=== PATIENT | female | born 1935 | race Caucasian/White ===

== ENCOUNTER 2021-07-30 15:42 | Inpatient (IN) ==
--- NOTE | 2021-07-30 16:00 | Emergency Department Note ---
Impression & Plan Hypothermia, Leg swelling, Cellulitis of leg, right, Pain in right shoulder, Bradycardia ED Provider Note Provider: Joselito Mars MD DATE OF SERVICE: 07/30/2021 CHIEF COMPLAINT: Cold, leg wounds HISTORY OF PRESENT ILLNESS: Patient is a 86-year-old female presenting via ambulance from her home today after EMS was summoned by [facility] workers. Evidently some [facility] [employer] workers went to check on her and were concerned about her condition and thus called EMS. EMS reports that there was somewhat of a deplorable condition at home and the patient had obvious wounds on her legs as well as intertriginous irritations. She was noted to be bradycardic for EMS and was given a very small amount of IV fluid prior to arrival. Upon arrival here the patient states that she does not feel cold and does not have any pain. She denies any nausea, palpitations, shortness of breath, or numbness or weakness. She answers majority of the questions no but does not have a prolonged discussion with me. Patient states that she does not know that her legs are in a bad condition. EMS report that the patient's home meds include lisinopril and Protonix but is unclear when she was last at medical care. REVIEW OF SYSTEMS: A total of 10 review of systems was obtained and negative except as stated above in the HPI. PAST MEDICAL HISTORY: As noted above MEDICATIONS: EMS reports lisinopril Protonix SOCIAL HISTORY: Reported lives at home with brother PHYSICAL EXAM: GENERAL: alert and oriented to person in no acute distress on stretcher somewhat slow to respond with kyphosis Head: normocephalic and atraumatic EYES: No injection, discharge or icterus. PERRL NECK: Trachea midline. Supple. ENT: Mucous membranes pink and moist. LUNGS: Airway patent. No retractions. Breath sounds clear with good air entry bilaterally. HEART: Regular rate and rhythm. No chest wall tenderness ABDOMEN: Soft and non-tender, without guarding or rebound. BACK: No midline tenderness with grade 1 sacral decub approximately 2 cm noted SKIN: Acyanotic but cool. Patient with mild erythematous rash under the bilateral breasts in the inguinal region. EXTREMITIES: Patient with about 2+ bilateral lower extreme edema with some chronic venous stasis and mild bilateral erythema. There is some white purulent discharge overlying the skin area of the right lower leg just proximal to the ankle. NEUROLOGICAL: No focal deficits moving all extremities. No aphasia. No facial droop or slurred speech. EK bpm appears to be a sinus bradycardia ST segment elevation or depression noted. QTc 445 CONTINUOUS CARDIAC MONITORING: was ordered and showed a heart rate of 30s-40s bpm in sinus bradycardia Patient's laboratory studies and imaging reviewed. Differential includes Infection, dehydration, metabolic abnormality, hypo/hyperglycemia, electrolyte disturbance, anemia, hypoxia, cardiac sources, intracerebral event, toxicologic, neurologic, as well as other pathologies. IMPRESSION/MEDICAL DECISION MAKING: Patient presents appears somewhat fatigued and an unkept state. There is evidence of intertriginous irritations in of the breast in the groin region. There is 2-3+ lower extremity edema with the lower leg just above the ankle some purulence and white material. No active bleeding noted or obvious traumatic injury but significant skin breakdown noted concern for possible 6 infection here. Cultures including skin culture was ordered. Patient hypothermic and bradycardic but blood pressure stable and she does answer questions. Nikole hugger thermal blanket applied for warming. Labs were sent. Leukopenia but no significant anemia. Some thrombocytopenia noted 116. No lactate elevation. Negative Covid test. Given she is a little bit fatigued and slow to respond to CT the head to be completed. Some slight tenderness of the right shoulder and x-rays obtained here. Question dislocation versus subluxation. Some tenderness but not in a medical place for any kind of reduction attempt. Likely more chronic. Resident discussed with Dr. Acuna and will place in sling at this time. Procalcitonin not severely elevated given the evaluation of the legs given a dose of Zosyn empirically. Again cultures were obtained. Will admit for further care. No emergency contact listed in EMR here at home phone number continues to ring. Patient's temperature does begin to slowly increase and given additional small amount of of IV fluid warmed. DIAGNOSIS: Hypothermia, leg cellulitis/wounds, bradycardia, right shoulder pain DISPOSITION: Hospitalist will evaluate Critical Care I have personally spent 35 minutes of critical care time in the direct managem ent of this patient. This includes bedside care, interpretation of diagnostic studies, and testing, discussion with consultants, patient, and other required patient management activities. These 35 minutes is in excess of all separately billable procedures. Past Med/Surg History Medical History (Updated 07/30/21 @ 20:01 by Zaida Murillo PA-C) GERD (gastroesophageal reflux disease) HLD (hyperlipidemia) HTN (hypertension) Surgical History (Updated 07/30/21 @ 19:51 by Zaida Murillo PA-C) No history of previous surgery Family History (Updated 07/30/21 @ 19:52 by Zaida Murillo PA-C) Sister Breast cancer Mother Heart disease Father Heart disease Social History (Updated 07/30/21 @ 19:52 by Zaida Murillo PA-C) Smoking Status: Unknown if ever smoked Hx Alcohol Use: No Hx Substance Use: No Allergies Allergies Allergy/AdvReac Type Severity Reaction Status Date / Time No Known Allergies Allergy Verified 07/30/21 17:54 Home Meds Home Medications Medication Instructions Recorded Confirmed Unobtainable 07/30/21 07/30/21 Results & Data (ED) Vital Signs Vital Signs - 24 hr 07/30/21 15:47 07/30/21 15:48 07/30/21 15:57 Temperature 29.6 C L Temperature Source Rectal Pulse Rate 39 L Pulse Rate [Apical] Pulse Rhythm [Apical] Respiratory Rate 14 Respiratory Effort / Characteristics Non-Labored Respiratory Depth Normal Respiratory Pattern Blood Pressure 142/65 H Blood Pressure [Left Arm] Blood Pressure Mean 90 Blood Pressure Mean [Left Arm] Blood Pressure Position [Left Arm] Pulse Oximetry 97 Oxygen Delivery Method Room Air Room Air Sepsis Recent Fever Within 48 Hours No Sepsis New/Unexplained Change in Mental Status Yes Sepsis Action Taken by Nursing No Action Required 07/30/21 16:36 07/30/21 16:48 07/30/21 17:00 Temperature Temperature Source Pulse Rate Pulse Rate [Apical] 33 L 38 L Pulse Rhythm [Apical] Respiratory Rate 13 15 Respiratory Effort / Characteristics Non-Labored Spontaneous Non-Labored Spontaneous Respiratory Depth Normal Normal Respiratory Pattern Blood Pressure Blood Pressure [Left Arm] 112/68 139/52 L Blood Pressure Mean Blood Pressure Mean [Left Arm] 82 81 Blood Pressure Position [Left Arm] Pulse Oximetry 96 97 97 Oxygen Delivery Method Room Air Room Air Room Air Sepsis Recent Fever Within 48 Hours Sepsis New/Unexplained Change in Mental Status Sepsis Action Taken by Nursing 07/30/21 17:45 07/30/21 18:00 07/30/21 18:30 Temperature 29.3 C L Temperature Source Rectal Pulse Rate Pulse Rate [Apical] 33 L 38 L 36 L Pulse Rhythm [Apical] Respiratory Rate 16 13 14 Respiratory Effort / Characteristics Non-Labored Non-Labored Spontaneous Non-Labored Respiratory Depth Normal Normal Normal Respiratory Pattern Blood Pressure Blood Pressure [Left Arm] 127/59 L 95/44 L 98/39 L Blood Pressure Mean Blood Pressure Mean [Left Arm] 81 61 58 Blood Pressure Position [Left Arm] Pulse Oximetry 97 97 96 Oxygen Delivery Method Room Air Room Air Room Air Sepsis Recent Fever Within 48 Hours Sepsis New/Unexplained Change in Mental Status Sepsis Action Taken by Nursing 07/30/21 18:37 07/30/21 19:02 07/30/21 19:14 Temperature Temperature Source Pulse Rate Pulse Rate [Apical] 41 L Pulse Rhythm [Apical] Respiratory Rate 20 15 Respiratory Effort / Characteristics Non-Labored Non-Labored Spontaneous Respiratory Depth Shallow Respiratory Pattern Regular Blood Pressure Blood Pressure [Left Arm] 98/50 L 90/48 L Blood Pressure Mean Blood Pressure Mean [Left Arm] 66 62 Blood Pressure Position [Left Arm] Lying Pulse Oximetry 96 96 Oxygen Delivery Method Room Air Room Air Sepsis Recent Fever Within 48 Hours Sepsis New/Unexplained Change in Mental Status Sepsis Action Taken by Nursing 07/30/21 19:15 07/30/21 19:30 Temperature 30.4 C L Temperature Source Rectal Pulse Rate Pulse Rate [Apical] 44 L 41 L Pulse Rhythm [Apical] Regular Respiratory Rate 16 18 Respiratory Effort / Characteristics Non-Labored Spontaneous Non-Labored Spontaneous Respiratory Depth Shallow Respiratory Pattern Regular Blood Pressure Blood Pressure [Left Arm] 96/40 L 99/45 L Blood Pressure Mean Blood Pressure Mean [Left Arm] 58 63 Blood Pressure Position [Left Arm] Lying Lying Pulse Oximetry 95 95 Oxygen Delivery Method Room Air Room Air Sepsis Recent Fever Within 48 Hours Sepsis New/Unexplained Change in Mental Status Sepsis Action Taken by Nursing Laboratory Data Result diagrams: 07/30/21 16:08 07/30/21 17:55 Lab Results 07/30/21 07/30/21 07/30/21 Range/Units 16:00 16:08 16:08 WBC 4.75 L (4.8-10.8) K/uL RBC 4.90 (4.2-5.4) M/uL Hgb 14.4 (12.0-16.0) g/dL Hct 44.2 (37-47) % MCV 90.2 (80-100) fL MCH 29.4 (25-34) pg MCHC 32.6 (32-36) g/dL RDW Std Deviation 51.0 H (36.4-46.3) fL RDW Coeff of Paul 15.6 H (11.5-14.5) % Plt Count 116 L (130-400) K/uL MPV 11.4 H (7.4-10.4) fL Immature Gran % (Auto) 0.0 % Neut % (Auto) 85.9 % Lymph % (Auto) 8.2 % Story % (Auto) 5.7 % Eos % (Auto) 0.2 % Baso % (Auto) 0.0 % Neut # (Auto) 4.08 (1.4-6.5) K/uL Lymph # (Auto) 0.39 L (1.2-3.4) K/uL Story # (Auto) 0.27 (0.11-0.59) K/uL Eos # (Auto) 0.01 (0-0.5) K/uL Baso # (Auto) 0.00 (0-0.2) K/uL Immature Gran # (Auto) 0.00 (0.00-0.02) K/uL Echinocytes 1+ PT 11.1 (9.0-12.0) Seconds INR 1.0 (0.9-1.1) APTT 42.8 H (21.0-31.0) Seconds PTT Ratio 1.6 Sodium (136-145) mmol/L Potassium (3.5-5.1) mmol/L Chloride (98-107) mmol/L Carbon Dioxide (21-32) mmol/L Anion Gap (3-11) BUN (6-23) mg/dl Creatinine (0.6-1.2) mg/dl Est Cr Clr Drug Dosing Est GFR ( Amer) ml/min Est GFR (Non-Af Amer) ml/min BUN/Creatinine Ratio (10-20) Glucose (70-99(Fasting)) mg/dl Lactate (0.4-2.0) mmol/L Calcium (8.5-10.1) mg/dl Magnesium (1.7-2.4) mg/dl Total Bilirubin (0.2-1.0) mg/dl AST (13-39) U/L ALT (7-52) U/L Alkaline Phosphatase (34-104) U/L Total Creatine Kinase (26-192) U/L Troponin I (0-0.04) ng/ml Total Protein (6.0-8.3) gm/dl Albumin (3.4-5.0) gm/dl Globulin (2.5-4.0) gm/dl Albumin/Globulin Ratio (0.9-2) Lipase (11-82) U/L Procalcitonin (0-0.5) ng/ml TSH (0.300-4.500) uIu/ml SARS-CoV-2, RNA, NAAT NEGATIVE (NEGATIVE) 07/30/21 07/30/21 07/30/21 Range/Units 16:08 16:08 16:08 WBC (4.8-10.8) K/uL RBC (4.2-5.4) M/uL Hgb (12.0-16.0) g/dL Hct (37-47) % MCV (80-100) fL MCH (25-34) pg MCHC (32-36) g/dL RDW Std Deviation (36.4-46.3) fL RDW Coeff of Paul (11.5-14.5) % Plt Count (130-400) K/uL MPV (7.4-10.4) fL Immature Gran % (Auto) % Neut % (Auto) % Lymph % (Auto) % Story % (Auto) % Eos % (Auto) % Baso % (Auto) % Neut # (Auto) (1.4-6.5) K/uL Lymph # (Auto) (1.2-3.4) K/uL Story # (Auto) (0.11-0.59) K/uL Eos # (Auto) (0-0.5) K/uL Baso # (Auto) (0-0.2) K/uL Immature Gran # (Auto) (0.00-0.02) K/uL Echinocytes PT (9.0-12.0) Seconds INR (0.9-1.1) APTT (21.0-31.0) Seconds PTT Ratio Sodium 144 (136-145) mmol/L Potassium (3.5-5.1) mmol/L Chloride 110 H (98-107) mmol/L Carbon Dioxide 29 (21-32) mmol/L Anion Gap 5 (3-11) BUN 47 H (6-23) mg/dl Creatinine 0.49 L (0.6-1.2) mg/dl Est Cr Clr Drug Dosing Not Reportable Est GFR ( Amer) 103.0 ml/min Est GFR (Non-Af Amer) 88.8 ml/min BUN/Creatinine Ratio 95.9 H (10-20) Glucose 95 (70-99(Fasting)) mg/dl Lactate 0.6 (0.4-2.0) mmol/L Calcium 10.3 H (8.5-10.1) mg/dl Magnesium 2.3 (1.7-2.4) mg/dl Total Bilirubin 0.4 (0.2-1.0) mg/dl AST (13-39) U/L ALT 37 (7-52) U/L Alkaline Phosphatase 139 H (34-104) U/L Total Creatine Kinase 41 (26-192) U/L Troponin I < 0.03 (0-0.04) ng/ml Total Protein 7.1 (6.0-8.3) gm/dl Albumin 3.7 (3.4-5.0) gm/dl Globulin 3.4 (2.5-4.0) gm/dl Albumin/Globulin Ratio 1.1 (0.9-2) Lipase (11-82) U/L Procalcitonin (0-0.5) ng/ml TSH 2.537 (0.300-4.500) uIu/ml SARS-CoV-2, RNA, NAAT (NEGATIVE) 07/30/21 07/30/21 07/30/21 Range/Units 16:32 17:55 17:55 WBC (4.8-10.8) K/uL RBC (4.2-5.4) M/uL Hgb (12.0-16.0) g/dL Hct (37-47) % MCV (80-100) fL MCH (25-34) pg MCHC (32-36) g/dL RDW Std Deviation (36.4-46.3) fL RDW Coeff of Paul (11.5-14.5) % Plt Count (130-400) K/uL MPV (7.4-10.4) fL Immature Gran % (Auto) % Neut % (Auto) % Lymph % (Auto) % Story % (Auto) % Eos % (Auto) % Baso % (Auto) % Neut # (Auto) (1.4-6.5) K/uL Lymph # (Auto) (1.2-3.4) K/uL Story # (Auto) (0.11-0.59) K/uL Eos # (Auto) (0-0.5) K/uL Baso # (Auto) (0-0.2) K/uL Immature Gran # (Auto) (0.00-0.02) K/uL Echinocytes PT (9.0-12.0) Seconds INR (0.9-1.1) APTT (21.0-31.0) Seconds PTT Ratio Sodium (136-145) mmol/L Potassium 4.3 (3.5-5.1) mmol/L Chloride (98-107) mmol/L Carbon Dioxide (21-32) mmol/L Anion Gap (3-11) BUN (6-23) mg/dl Creatinine (0.6-1.2) mg/dl Est Cr Clr Drug Dosing Est GFR ( Amer) ml/min Est GFR (Non-Af Amer) ml/min BUN/Creatinine Ratio (10-20) Glucose (70-99(Fasting)) mg/dl Lactate (0.4-2.0) mmol/L Calcium (8.5-10.1) mg/dl Magnesium (1.7-2.4) mg/dl Total Bilirubin (0.2-1.0) mg/dl AST 26 (13-39) U/L ALT (7-52) U/L Alkaline Phosphatase (34-104) U/L Total Creatine Kinase (26-192) U/L Troponin I (0-0.04) ng/ml Total Protein (6.0-8.3) gm/dl Albumin (3.4-5.0) gm/dl Globulin (2.5-4.0) gm/dl Albumin/Globulin Ratio (0.9-2) Lipase 132 H (11-82) U/L Procalcitonin < 0.05 (0-0.5) ng/ml TSH (0.300-4.500) uIu/ml SARS-CoV-2, RNA, NAAT (NEGATIVE) Administered Medications Discontinued Medications Piperacillin Sod/Tazobactam Sod (Zosyn) 4.5 gm in 120 mls @ 240 mls/hr IV NOW ONE Stop: 07/30/21 17:54 Last Infusion: 07/30/21 18:15 Dose: 0 mls/hr Documented by: [id number] Admin: 07/30/21 17:34 Dose: 240 mls/hr Documented by: [id number] Sodium Chloride (Nss) 500 mls @ 999 mls/hr IV .Q31M ONE Stop: 07/30/21 17:59 Last Infusion: 07/30/21 19:20 Dose: 0 mls/hr Documented by: [id number] Admin: 07/30/21 17:59 Dose: 999 mls/hr Documented by: [id number] Sodium Chloride (Nss) 500 mls @ 999 mls/hr IV .Q31M ONE Stop: 07/30/21 19:42 Last Admin: 07/30/21 19:29 Dose: 999 mls/hr Documented by: [id number] Nystatin (Nystatin Powder 15gm Btl) 1 appln EXT ONCE ONE Stop: 07/30/21 16:22 Last Admin: 07/30/21 17:02 Dose: 1 appln Documented by: [id number] Imaging Data Radiologist's Impression: Chest X-Ray 07/30/21 15:48 XR chest 1V portable CLINICAL HISTORY: SEPSIS. COMPARISON STUDY: 05/08/2015 TECHNIQUE: 1 view of the chest FINDINGS: Single frontal view of the chest demonstrates the heart size to again be e nlarged. The patient is in a kyphotic position in the lung apices cannot be well seen. The remainder of the lungs are clear of alveolar opacities. There is no evidence for pleural effusion. There is no evidence for vascular congestion. There is no acute osseous pathology. IMPRESSION: 1. No acute cardiopulmonary disease. 2. Limited examination due to kyphotic positioning. ACT 112: Negative or not required by law. Electronically signed by: Bo Joyce M.D. 07/30/2021 4:[address] 07/30/21 16:07 CT head/brain wo con CLINICAL HISTORY: AMS Technique: Contiguous axial CT images of the head were acquired from the base of the skull to the vertex without intravenous contrast administration. Images were viewed in brain, subdural and bone windows. Automated dose lowering techniques and/or adjustment according to patient size were utilized for this exam. Comparison: None available at the time of this dictation. Findings: Exam is limited by patient motion. Areas of decreased attenuation are present in the periventricular and subcortical white matter bilaterally consistent with small vessel ischemic disease. Generalized cerebral atrophy with commensurate enlargement of the ventricles, sulci, and cisterns is also present. There is no acute intracranial hemorrhage or evidence of acute territorial infarction. No shift of the midline structures, mass effect, or extra-axial abnormalities are shown. Atherosclerotic calcifications are present in the intracranial segments of the internal carotid arteries. Imaged portions of the paranasal sinuses and mastoid air cells are clear. The orbits appear normal. There are no acute fractures of the calvaria or scalp swelling. Impression: No acute intracranial hemorrhage, no evidence of acute territorial infarction or other acute intracranial disease process. ACT 112: Negative or not required by law. Electronically signed by: Francois Elias M.D. 07/30/2021 4:50 PM Shoulder X-Ray 07/30/21 16:34 XR shoulder RT min 2V routine CLINICAL HISTORY: shoulder tenderness,. COMPARISON STUDY: 02/01/2021 TECHNIQUE: 3 right shoulder views FINDINGS: Bones: There is an old, healed humeral neck fracture present. There is anterior subluxation/dislocation of the humeral head in relation to the glenoid. There is no lytic or blastic lesion. Joints: The AC joint is intact. Soft tissues: There is no focal soft tissue abnormality. There is no radiopaque foreign body. IMPRESSION: 1. Old, healed humeral neck fracture with anterior subluxation/dislocation of t he humeral head in relation to the glenoid. ACT 112: Negative or not required by law. Electronically signed by: Bo Joyce M.D. 07/30/2021 5:17 PM Discharge Plan Visit Data Chief Complaint: Illness Stated Complaint: AMS, UNABLE TO AMBULATE ED Provider: Joselito Mars ED Midlevel Provider: Sweta Evans Discharge Problem: Hypothermia, Leg swelling, Cellulitis of leg, right, Pain in right shoulder, Bradycardia Patient Disposition: Being Evaluated by Hospitalist Forms Stand Alone Forms: Dtime Prescriptions Prescriptions: No Action Unobtainable RF: 0 Referrals Referrals: Aleja Vines MD [Primary Care Provider] - Discharge Problem: Hypothermia Qualifiers: Encounter type: initial encounter Qualified Code(s): T68.XXXA - Hypothermia, initial encounter Pain in right shoulder Qualifiers: Chronicity: unspecified Qualified Code(s): M25.511 - Pain in right shoulder
--- NOTE | 2021-07-30 16:17 | Emergency Department Note ---
ED Visit Note Patient was seen by myself and discussed with Dr. Mars who evaluated her separately. Please see his note for assessment and plan. Resident Activity Tracking Resident Involvement: Resident Care Provided Care Provided: Adult ED
[2021-07-30 16:21] LABS: Eosinophils # (auto) 0.01 K/uL (0-0.5); Eosinophils % (auto) 0.2 %; Hematocrit (blood only) 44.2 % (37-47); Hemoglobin 14.4 g/dL (12.0-16.0); Lymphocytes # (auto) 0.39 K/uL (1.2-3.4); Lymphocytes % (auto) 8.2 %; Mean Corpuscular Hemoglobin 29.4 pg (25-34); Mean Corpuscular Hgb Conc 32.6 g/dL (32-36); Mean Corpuscular Volume 90.2 fL (80-100); Mean Platelet Volume 11.4 fL (7.4-10.4); Monocytes # (auto) 0.27 K/uL (0.11-0.59); Monocytes % (auto) 5.7 %; Neutrophils # (auto) 4.08 K/uL (1.4-6.5); Neutrophils % (auto) 85.9 %; Platelet Count 116 K/uL (130-400); RDW Coefficient of Variation 15.6 % (11.5-14.5); White Blood Count 4.75 K/uL (4.8-10.8)
[2021-07-30] MEDS ORDERED: NYSTATIN POWDER 15GM BTL EXT ONE (16:21)
--- NOTE | 2021-07-30 16:28 | XRay Report ---
XR chest 1V portable CLINICAL HISTORY: SEPSIS. COMPARISON STUDY: 05/08/2015 TECHNIQUE: 1 view of the chest FINDINGS: Single frontal view of the chest demonstrates the heart size to again be enlarged. The patient is in a kyphotic position in the lung apices cannot be well seen. The remainder of the lungs are clear of a lveolar opacities. There is no evidence for pleural effusion. There is no evidence for vascular conge stion. There is no acute osseous pathology. IMPRESSION: 1. No acute cardiopulmonary disease. 2. Limited examination due to kyphotic positioning. ACT 112: Negative or not required by law. Electronically signed by: Bo Joyce M.D. 07/30/2021 4:26 PM
[2021-07-30 16:30] LABS: Partial Thromboplastin Ratio 1.6; Partial Thromboplastin Time 42.8 Seconds (21.0-31.0); Prothrombin Time 11.1 Seconds (9.0-12.0)
[2021-07-30 16:48] LABS: Alanine Aminotransferase 37 U/L (7-52); Albumin Globulin Ratio 1.1 (0.9-2); Albumin Level 3.7 gm/dl (3.4-5.0); Alkaline Phosphatase 139 U/L (34-104); Anion Gap 5 (3-11); BUN Creatinine Ratio 95.9 (10-20); Bilirubin,Total 0.4 mg/dl (0.2-1.0); Blood Urea Nitrogen 47 mg/dl (6-23); Calcium 10.3 mg/dl (8.5-10.1); Carbon Dioxide 29 mmol/L (21-32); Chloride 110 mmol/L (98-107); Creatine Kinase 41 U/L (26-192); Est GFR (Non-African American) 88.8 ml/min; Globulin 3.4 gm/dl (2.5-4.0); Glucose 95 mg/dl (70-99(Fasting)); Magnesium 2.3 mg/dl (1.7-2.4); Sodium 144 mmol/L (136-145); Total Protein 7.1 gm/dl (6.0-8.3); Troponin I < 0.03 ng/ml (0-0.04)
--- NOTE | 2021-07-30 16:52 | CT Scan Report ---
CT head/brain wo con CLINICAL HISTORY: AMS Technique: Contiguous axial CT images of the head were acquired from the base of the skull to the mildred rosaline without intravenous contrast administration. Images were viewed in brain, subdural and [facility]. Automated dose lowering techniques and/or adjustment according to patient size were utilized for this exam. Comparison: None available at the time of this dictation. Findings: Exam is limited by patient motion. Areas of decreased attenuation are present in the periventricular and subcortical white matter bilaterally consistent with small vessel ischemic disease. Generalized c erebral atrophy with commensurate enlargement of the ventricles, sulci, and cisterns is also present. There is no acute intracranial hemorrhage or evidence of acute territorial infarction. No shift of t he midline structures, mass effect, or extra-axial abnormalities are shown. Atherosclerotic calcific ations are present in the intracranial segments of the internal carotid arteries. Imaged portions of the paranasal sinuses and mastoid air cells are clear. The orbits appear normal. There are no acute fractures of the calvaria or scalp swelling. Impression: No acute intracranial hemorrhage, no evidence of acute territorial infarction or other acute intracra nial disease process. ACT 112: Negative or not required by law. Electronically signed by: Francois Elias M.D. 07/30/2021 4:50 PM
[2021-07-30 16:53] LABS: Echinocytes 1+
--- NOTE | 2021-07-30 17:18 | XRay Report ---
XR shoulder RT min 2V routine CLINICAL HISTORY: shoulder tenderness,. COMPARISON STUDY: 02/01/2021 TECHNIQUE: 3 right shoulder views FINDINGS: Bones: There is an old, healed humeral neck fracture present. There is anterior subluxation/dislocati on of the humeral head in relation to the glenoid. There is no lytic or blastic lesion. Joints: The AC joint is intact. Soft tissues: There is no focal soft tissue abnormality. There is no radiopaque foreign body. IMPRESSION: 1. Old, healed humeral neck fracture with anterior subluxation/dislocation of the humeral head in rel ation to the glenoid. ACT 112: Negative or not required by law. Electronically signed by: Bo Joyce M.D. 07/30/2021 5:17 PM
[2021-07-30] MEDS ORDERED: PIPERACILL/TAZOBAC CONSULT ACTIVE PRN (17:25)
[2021-07-30] MEDS ORDERED: PIPERACILLIN/TAZOBACTAM 4.5 GM/120 ML BAG IV ONE (17:25)
[2021-07-30] MEDS ORDERED: SODIUM CHLORIDE 0.9% 500 ML IV ONE ×2 (17:29→19:12)
[2021-07-30 18:24] LABS: Potassium 4.3 mmol/L (3.5-5.1)
--- NOTE | 2021-07-30 18:42 | History & Physical Report ---
Date of Service July 30, 2021 Assessment & Plan (1) Hypothermia: (2) Bradycardia: (3) AMS (altered mental status): Plan: Patient is 86-year-old female with PMH HTN, HLD, GERD presented to ER by EMS for leg wounds and hypothermia. Area agency on aging found patient in house today disheveled, covered in feces and EMS transported to hospital. Reported house felt cool. In ER found to be hypothermic T: 29.6C rectally, P: 39, R: 14, BP: 142/65, 97% on RA. A freeman hugger was applied and patient given 500ml warmed NSS. Temperature up to 30.4C rectally, BP: 99/45, P: 41 CT HEAD: no acute changes CXR: no acute changes ? hypothermic secondary to cold house. Bradycardia likely secondary to moderate hypothermia. AMS likely secondary to hypothermia, unsure of pt's baseline mental status. No known family to contact currently Tele to monitor Pacer pads at bedside Continue heated blanket TSH: 2.5, normal CPK, troponin Lyme titer, lipase pending Blood cultures pending, UA, Urine culture pending Neuro checks echo IVF NPO for now until improved mental status/condition CBC, BMP in am (4) Leg swelling: Plan: Leg Wounds Appears to have chronic BLE edema and unkept skin In ER given Zosyn Will continue Zosyn, add doxycycline Wound culture, blood cultures pending Venous doppler BLE to r/o DVT Wound nurse consult (5) HTN (hypertension): Plan: Reported h/o HTN from outpatient records. Previously prescribed lisinopril 5mg daily. Unknown last dose Currently hypotensive Monitor (6) HLD (hyperlipidemia): Plan: Reported h/o HLD from outpatient records. Previously prescribed atorvastatin 10mg daily. Unknown last dose (7) GERD (gastroesophageal reflux disease): Plan: Prior h/o GERD. Previously prescribed Protonix 40mg daily. Unknown last dose DVT Prophylaxis Heparin SQ Full Code, unable to fully discuss with patient secondary to mental status. Outpatient records reviewed an no advanced directives found in chart Follows with Dr Aleja Vines for routine care, however has not been seen since 2019. Pt was seen and care coordinated with Dr Singleton. See addendum History of Present Illness Chief Complaint: Leg wounds Primary Care Provider: Aleja Vines MD Patient is 86-year-old female with PMH HTN, HLD, GERD presented to ER by EMS for leg wounds and hypothermia. History obtained from outpatient records, ER staff, limited history obtained from patient secondary to current mental status. It is reported area agency on aging went to patient's house today and found her in poor living conditions and found patient's condition to be poor and EMS was called. It is reported EMS stated house was full of clutter with multiple things stuck to the ceiling. One EMS provider reported house temperature appeared cool. Reported patient was found sitting in chair covered in feces and urine. Legs were noted to be swollen and red with thickened skin and wounds. ER physician reports patient was answering no to some questions. Patient currently states lives in [place] and her sisters have . Reports brother named Stepan but is unable to tell me a last name, phone number or where he lives. She does not answer further questions for this provider. In ER found to be hypothermic T: 29.6C rectally, P: 39, R: 14, BP: 142/65, 97% on RA. A freeman hugger was applied and patient given 500ml warmed NSS. Out patient chart reviewed. Promise Jamison listed as sister and emergency contact: [phone]. 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 Attempted patient's home phone number also and no one answered. Patient last seen by PCP in 07/2019. Patient noted not to see PCP on regular basis. Last Rx refill by PCP on 05/2020 for atorvastatin 10 mg 1 tablet daily. Last Rx refilled by PCP 07/2020 lisinopril 5 mg 1 tablet daily, pantoprazole 40 mg 1 tablet daily. It is unknown if patient has been taking any medications. Allergies Allergy/AdvReac Type Severity Reaction Status Date / Time No Known Allergies Allergy Verified 07/30/21 17:54 Home Medications Medication Instructions Recorded Confirmed Type Unobtainable 07/30/21 07/30/21 History Past Med/Surg History Medical History (Updated 07/30/21 @ 20:01 by Zaida Murillo PA-C) GERD (gastroesophageal reflux disease) HLD (hyperlipidemia) HTN (hypertension) Surgical History (Updated 07/30/21 @ 19:51 by Zaida Murillo PA-C) No history of previous surgery Family History (Updated 07/30/21 @ 19:52 by Zaida Murillo PA-C) Sister Breast cancer Mother Heart disease Father Heart disease Social History (Updated 07/30/21 @ 19:52 by Zaida Murillo PA-C) Smoking Status: Unknown if ever smoked Hx Alcohol Use: No Hx Substance Use: No Review of Systems Review of Systems: Unobtainable due to cognitive status Physical Exam Physical Exam: General: no apparent distress, WDWN, disheveled chronic ill appearing elderly female Head: normocephalic, atraumatic Eyes: PERRL, unable to test EOM's, conjunctiva non-injected, anicteric ENT: normal inspection external ears, nose, mucous membranes dry Neck: supple, trachea midline Lungs: +Kyphosis, lungs appear clear, no respiratory distress CV: bradycardia, rate 40, regular rhythm, no murmur Abd: normal BS, soft, non-tender Ext: no apparent calf tenderness, RLE: +edema, erythema, severely thickened skin, +white discharge distal leg, medial leg with suspected wound, difficult to assess with thickened skin, LLE: +edema, erythema, thickened skin. RUE: appears to have tenderness to palpation shoulder as withdrawals when palpated Neuro: Awake, able to say her name and wears she lives and her siblings names, unable to further communicate at this time Skin: cool, dry, skin folds under breast and groin with erythema Results & Data Results & Data ([facility]) Vital Signs (Past 12 Hours) Vital Signs Temp Pulse Pulse Resp BP BP Pulse Ox 07/30/21 18:37 98/50 L 07/30/21 18:30 36 L 14 98/39 L 96 07/30/21 18:00 38 L 13 95/44 L 97 07/30/21 17:45 29.3 C L 33 L 16 127/59 L 97 07/30/21 17:00 38 L 15 139/52 L 97 07/30/21 16:48 97 07/30/21 16:36 33 L 13 112/68 96 07/30/21 15:47 29.6 C L 39 L 14 142/65 H 97 Laboratory Results Short CBC 07/30/21 Range/Units 16:08 WBC 4.75 L (4.8-10.8) K/uL Hgb 14.4 (12.0-16.0) g/dL Hct 44.2 (37-47) % Plt Count 116 L (130-400) K/uL BMP 07/30/21 07/30/21 16:08 17:55 Sodium 144 Potassium 4.3 Chloride 110 H Carbon Dioxide 29 BUN 47 H Creatinine 0.49 L Glucose 95 Calcium 10.3 H Cardiac Enzymes 07/30/21 Range/Units 16:08 Total Creatine Kinase 41 (26-192) U/L Troponin I < 0.03 (0-0.04) ng/ml Liver Function 07/30/21 07/30/21 Range/Units 16:08 17:55 Total Bilirubin 0.4 (0.2-1.0) mg/dl AST 26 (13-39) U/L ALT 37 (7-52) U/L Alkaline Phosphatase 139 H (34-104) U/L Albumin 3.7 (3.4-5.0) gm/dl Diagnostic Findings Chest X-Ray 07/30/21 15:48 XR chest 1V portable CLINICAL HISTORY: SEPSIS. COMPARISON STUDY: 05/08/2015 TECHNIQUE: 1 view of the chest FINDINGS: Single frontal view of the chest demonstrates the heart size to again be enlarged. The patient is in a kyphotic position in the lung apices cannot be well seen. The remainder of the lungs are clear of alveolar opacities. There is no evidence for pleural effusion. There is no evidence for vascular congestion. There is no acute osseous pathology. IMPRESSION: 1. No acute cardiopulmonary disease. 2. Limited examination due to kyphotic positioning. ACT 112: Negative or not required by law. Electronically signed by: Bo Joyce M.D. 07/30/2021 4:[address] 07/30/21 16:07 CT head/brain wo con CLINICAL HISTORY: AMS Technique: Contiguous axial CT images of the head were acquired from the base of the skull to the vertex without intravenous contrast administration. Images were viewed in brain, subdural and bone windows. Automated dose lowering techniques and/or adjustment according to patient size were utilized for this exam. Comparison: None available at the time of this dictation. Findings: Exam is limited by patient motion. Areas of decreased attenuation are present in the periventricular and subcortical white matter bilaterally consistent with small vessel ischemic disease. Generalized cerebral atrophy with commensurate enlargement of the ventricles, sulci, and cisterns is also present. There is no acute intracranial hemorrhage or evidence of acute territorial infarction. No shift of the midline structures, mass effect, or extra-axial abnormalities are shown. Atherosclerotic calcifications are present in the intracranial segments of the internal carotid arteries. Imaged portions of the paranasal sinuses and mastoid air cells are clear. The orbits appear normal. There are no acute fractures of the calvaria or scalp swelling. Impression: No acute intracranial hemorrhage, no evidence of acute territorial infarction or other acute intracranial disease process. ACT 112: Negative or not required by law. Electronically signed by: Francois Elias M.D. 07/30/2021 4:50 PM Shoulder X-Ray 07/30/21 16:34 XR shoulder RT min 2V routine CLINICAL HISTORY: shoulder tenderness,. COMPARISON STUDY: 02/01/2021 TECHNIQUE: 3 right shoulder views FINDINGS: Bones: There is an old, healed humeral neck fracture present. There is anterior subluxation/dislocation of the humeral head in relation to the glenoid. There is no lytic or blastic lesion. Joints: The AC joint is intact. Soft tissues: There is no focal soft tissue abnormality. There is no radiopaque foreign body. IMPRESSION: 1. Old, healed humeral neck fracture with anterior subluxation/dislocation of the humeral head in relation to the glenoid. ACT 112: Negative or not required by law. Electronically signed by: Bo Joyce M.D. 07/30/2021 5:17 PM ECG Additional Comments: sinus bradycardia Supervising Physician Co-Signing Physician Notes Is an 86-year-old female with history of hypertension, hyperlipidemia, GERD and other medical problems presents for evaluation of leg wounds, AMS and hypothermia. Patient unable to provide any history currently. Most of the hist ory is obtained from ER staff, old medical records. Patient was sent to ED on request by office of aging due to poor living conditions at home. Patient was found to be hypothermic, bradycardic while in ED. Review of systems not be obtained due to change in mental status. Please review HPI for complete details of presentation. Family could not be reached. No family at bedside. Blood work showed thrombocytopenia 116 K, BUN 47, creatinine 0.49, calcium 10.3, alkaline phosphatase 139, lipase 132, normal TSH, negative procalcitonin, normal lactate levels. CT head showed no acute process. Chest x-ray no acute cardiopulmonary disease. Shoulder x-ray showed old healed humeral neck fracture with anterior subluxation. On exam patient is chronic ill-appearing, disheveled, normocephalic atraumatic, kyphotic, EOMI, normal breath sounds, clear to auscultation, S1-S2, no murmur, bradycardia, abdomen soft, nontender, normal bowel sounds, alert, awake, altered mental status, bilateral lower extremity showed chronic venous stasis changes with callus formation, erythema, some whitish discharge noted. Patient is admitted for management of altered mental status likely acute metabolic encephalopathy secondary to hypothermia, bradycardia. Cannot rule out sepsis. Blood blood, wound cultures obtained. There had replaced. Warm IV fluids. Pacer pads at bedside. TSH, Lyme screen ordered. Started on broad-spectrum antibiotics with doxycycline, Zosyn. Avoid any antihypertensives. Will check venous Dopplers to rule out DVT. Check echo. I personally reviewed the record. Patient is interviewed and examined at bedside. Patient's care is coordinated with Zaida Murillo PA-C. Please refer to the documentation above for details of patient's presentation and for discussion of other issues. (1) Hypothermia Encounter type: initial encounter Qualified Code(s): T68.XXXA - Hypothermia, initial encounter
--- NOTE | 2021-07-30 19:14 | Electrocardiogram Report ---
Test Reason : Blood Pressure : / mmHG Vent. Rate : 036 BPM Atrial Rate : 035 BPM P-R Int : 208 ms QRS Dur : 104 ms QT Int : 576 ms P-R-T Axes : 025 027 -41 degrees QTc Int : 445 ms Poor data quality, interpretation may be adversely affected Marked sinus bradycardia Abnormal ECG When compared with ECG of 29-MAY-2015 07:21, Nonspecific T wave abnormality now evident in Anterior leads Confirmed by Glenroy Hunter ([id number]) on 07/30/2021 7:14:19 PM Referred By: ER Confirmed By:Chon Hunter
[2021-07-30] MEDS ORDERED: CONSULT PHARMACY STA (19:38)
[2021-07-30] MEDS ORDERED: SODIUM CHLORIDE 0.9% 500 ML IV SCH (21:00)
--- NOTE | 2021-07-31 07:04 | Ultrasound Report ---
US venous doppler LE BI CLINICAL HISTORY: R>L leg edema and erythema, r/o dvt COMPARISON: None available at the time of this dictation. TECHNIQUE: Bilateral lower extremity real-time compression venous ultrasound with Color Doppler imagi ng. Utilizing real-time ultrasonic imaging multiple real time high-resolution ultrasonic images with comp ression and noncompression maneuvers of the deep venous system in addition to color doppler imaging w ere performed from the common femoral vein through the proximal calf veins. FINDINGS: Currently there is normal compressibility of the deep venous system from the common femoral vein thro ugh the proximal calf veins. No current evidence of acute thrombosis is identified. Impression: No evidence of deep venous thrombus. There is limited views of the calf vessels due to swelling. ACT 112: Negative or not required by law. Electronically signed by: Bo Joyce M.D. 07/31/2021 7:02 AM
[2021-07-31] MEDS ORDERED: ACETAMINOPHEN 325 MG TAB PO PRN (07:22)
[2021-07-31] MEDS: CLOTRIMAZOLE 1% CR 15 GM TUBE EXT SCH ×2 (08:03→21:20)
[2021-07-31] MEDS: SODIUM CHLORIDE 0.9% 1000ML 1,000 ML IV SCH ×2 (08:03→15:28)
[2021-07-31] MEDS: HEPARIN SOD 5,000 UNIT/0.5 ML VIAL SQ SCH ×2 (08:04→21:21)
[2021-07-31] MEDS: DOXYCYCLINE HYCLATE 100 MG in DEXTROSE 5% 100 ML IV SCH ×2 (08:05→21:19)
[2021-07-31 08:46] LABS: Lyme Ab IgG w/WB Rflx Negative (Negative); Lyme Ab IgM w/WB Rflx Negative (Negative)
[2021-07-31] MEDS ORDERED: Flu Vaccine-High Dose (Fluzone-HD) PF 65+ 0.7mL SYR IM ONE (10:15)
[2021-07-31] MEDS ORDERED: PNEUMOCOCCAL Polysaccharide Vaccine 25mcg/0.5mL vial/Syr IM ONE (10:15)
[2021-07-31] MEDS: PIPERACILLIN/TAZOBACTAM 3.375 GM in DEXTROSE 5% 100 ML IV SCH ×2 (10:30→18:07)
[2021-07-31] MEDS ORDERED: VANCOMYCIN CONSULT ACTIVE PRN (11:46)
[2021-07-31] MEDS ORDERED: VANCOMYCIN HCL 1,000 MG in SODIUM CHLORIDE 0.9% 250 ML IV SCH (12:00)
--- NOTE | 2021-07-31 15:50 | Hospitalist Progress Note ---
Date of Service July 31, 2021 Assessment & Plan (1) Hypothermia: (2) Bradycardia: (3) AMS (altered mental status): Plan: Patient is 86-year-old female with PMH HTN, HLD, GERD presented to ER by EMS for leg wounds and hypothermia. Area agency on aging found patient in house today disheveled, covered in feces and EMS transported to hospital. Reported house felt cool. (4) Leg swelling: (5) HTN (hypertension): (6) HLD (hyperlipidemia): (7) GERD (gastroesophageal reflux disease): Plan: 86 year old female presented to ED via EMS for leg wounds and hypothermia. Area agency on aging found the patient in house disheveled, covered in feces and called EMS. She is being treated for following conditions. 1. Gram positive bacteremia- Blood clx from 07/30 showing GPC in clusters, MRSA negative. likely CONS. On zosyn/doxy. Repeat blood clx pending. Echo as below. If true bacteremia, will consult ID. 2. RLE cellulitis- bilateral venous stasis changes, US LE negative for DVT. RLE with foul smelling discharge and cellulitis. Wound clx growing GNB. On zosyn/doxy pending final clx results. Wound care consulted. 3. Hypothermia with bradycardia- resolved. likely from above. Echo with EF >70%, grade 1 diastolic dysfunction, no significant valvular lesion 4. AMS- likely from above, unknown baseline. CT head with no acute changes. Lyme negative. TSH normal. Lactate and procal negative. NPO until mental status improves, will consider [employer] eval. 5. HTN- on low dose lisinopril as OP. resume when indicated 6. HLD- ?on statin as OP 7. GERD- ?on PPI as OP. Will order pepcid 8. Right shoulder subluxation/dislocation- seen in Xray. unable to determine chronicity. Ortho evaluation DVT prophyalxis: sc heparin Disposition: Not medically stable. On iv antibiotics for bacteremia and cellulitis Contact: Unable to reach family over the phone [phone] (ariel delgado, sister) Admission and Anticipated Discharge Date Admission Date: July 30, 2021 Subjective Patient unable to engage in conversation. Hypothermia and bradycardia resolved. Looks comfortable, not in acute distress. No fever, vomiting or shortness of breath noted. Physical Exam Physical Exam: General: Chronically ill appearing elderly female, Awake, alert, not in acute distress HEENT: PERRL, anicteric, dry mucous membranes Chest: Clear breath sounds bilaterally, no wheezes or crackles CVS: Regular rate and rhythm, normal heart sounds, no murmur Abdomen: Soft, non tender, not distended, normal bowel sounds Neuro: Awake, alert, not answering questions Extremities: bilateral venous stasis changes R>L. RLE cellulitis with foul smelling discharge, erythema and tenderness Results & Data Results & Data ([facility]) Vital Signs (Past 12 Hours) Vital Signs Temp Pulse Pulse Resp BP Pulse Ox 07/31/21 12:15 78 07/31/21 11:51 36.9 C 81 19 142/55 H 94 07/31/21 08:12 37.1 C 91 H 26 H 120/37 L 93 07/31/21 07:38 37.4 C 85 20 120/37 L 93 07/31/21 04:10 37.8 C H 95 H 30 H 110/53 L 93 Laboratory Results Short CBC 07/30/21 Range/Units 16:08 WBC 4.75 L (4.8-10.8) K/uL Hgb 14.4 (12.0-16.0) g/dL Hct 44.2 (37-47) % Plt Count 116 L (130-400) K/uL BMP 07/30/21 07/30/21 16:08 17:55 Sodium 144 Potassium 4.3 Chloride 110 H Carbon Dioxide 29 BUN 47 H Creatinine 0.49 L Glucose 95 Calcium 10.3 H Cardiac Enzymes 07/30/21 Range/Units 16:08 Total Creatine Kinase 41 (26-192) U/L Troponin I < 0.03 (0-0.04) ng/ml Liver Function 07/30/21 07/30/21 Range/Units 16:08 17:55 Total Bilirubin 0.4 (0.2-1.0) mg/dl AST 26 (13-39) U/L ALT 37 (7-52) U/L Alkaline Phosphatase 139 H (34-104) U/L Albumin 3.7 (3.4-5.0) gm/dl Diagnostic Findings Venous Doppler Study 07/31/21 19:38 US venous doppler LE CLINICAL HISTORY: R>L leg edema and erythema, r/o dvt COMPARISON: None available at the time of this dictation. TECHNIQUE: Bilateral lower extremity real-time compression venous ultrasound with Color Doppler imaging. Utilizing real-time ultrasonic imaging multiple real time high-resolution ultrasonic images with compression and noncompression maneuvers of the deep venous system in addition to color doppler imaging were performed from the common femoral vein through the proximal calf veins. FINDINGS: Currently there is normal compressibility of the deep venous system from the common femoral vein through the proximal calf veins. No current evidence of acute thrombosis is identified. Impression: No evidence of deep venous thrombus. There is limited views of the calf vessels due to swelling. ACT 112: Negative or not required by law. Electronically signed by: Bo Joyce M.D. 07/31/2021 7:02 AM Medications Administered Current Inpatient Medications Acetaminophen (Acetaminophen 325 Mg Tab) 650 mg PO Q4H PRN PRN Reason: Pain or Fever Stop: 08/30/21 07:21 Clotrimazole (Clotrimazole 1% Cr 15 Gm Tube) 1 appln EXT BID [facility] Stop: 08/30/21 07:59 Last Admin: 07/31/21 08:03 Dose: 1 appln Documented by: Heparin Sodium (Porcine) (Heparin Sod 5,000 Unit/0.5 Ml Vial) 5,000 units SQ Q12 KRISTA Stop: 08/30/21 07:59 Last Admin: 07/31/21 08:04 Dose: 5,000 units Documented by: Sodium Chloride (Nss 1000ml) 1,000 mls @ 150 mls/hr IV .Q6H40M [facility] Stop: 07/31/21 20:41 Last Admin: 07/31/21 15:28 Dose: 150 mls/hr Documented by: Doxycycline Hyclate 100 mg/ (Dextrose) 110 mls @ 50 mls/hr IV Q12H [facility] Stop: 08/07/21 07:59 Last Infusion: 07/31/21 10:17 Dose: Infused Documented by: Piperacillin Sod/Tazobactam (Sod 3.375 gm/ Dextrose) 115 mls @ 28.75 mls/hr IV Q8H [facility]; Protocol Stop: 08/07/21 09:59 Last Infusion: 07/31/21 14:30 Dose: Infused Documented by: Miscellaneous Information (Piperacill/Tazobac Consult Active) 1 ea N/A UD PRN PRN Reason: Consult Stop: 08/29/21 17:24 (1) Hypothermia Encounter type: initial encounter Qualified Code(s): T68.XXXA - Hypothermia, initial encounter
--- NOTE | 2021-07-31 18:29 | CT Scan Report ---
CT shoulder RT wo con CLINICAL HISTORY: Right shoulder subluxation TECHNIQUE: Multidetector row helical CT of the right knee was performed without intravenous contrast. Coronal and sagittal reformations were obtained. Automated dose lowering techniques and/or adjustmen t according to patient size were utilized for this examination. Comparison: None available at the time of this dictation. FINDINGS: Severe degenerative changes are seen in the glenohumeral joint. There is mild inferior subluxation of the glenohumeral joint. IMPRESSION: Severe degenerative changes. Mild inferior subluxation of the glenohumeral joint. ACT 112: Negative or not required by law. Electronically signed by: Francois Elias M.D. 07/31/2021 6:28 PM
[2021-08-01] MEDS: PIPERACILLIN/TAZOBACTAM 3.375 GM in DEXTROSE 5% 100 ML IV SCH ×3 (02:30→18:17)
--- NOTE | 2021-08-01 06:26 | Electrocardiogram Report ---
Test Reason : Blood Pressure : / mmHG Vent. Rate : 089 BPM Atrial Rate : 089 BPM P-R Int : 208 ms QRS Dur : 102 ms QT Int : 350 ms P-R-T Axes : 046 -03 186 degrees QTc Int : 425 ms Normal sinus rhythm T wave abnormality, consider inferior ischemia T wave abnormality, consider anterolateral ischemia Abnormal ECG When compared with ECG of 30-JUL-2021 15:53, ST no longer elevated in Lateral leads T wave inversion now evident in Lateral leads HR has increased by 53 bpm Confirmed by Agustin Smart ([id number]) on 08/01/2021 6:26:25 AM Referred By: REFERRED SELF Confirmed By:Agustin Smart
[2021-08-01 07:11] LABS: Eosinophils # (auto) 0.01 K/uL (0-0.5); Eosinophils % (auto) 0.1 %; Hematocrit (blood only) 33.2 % (37-47); Hemoglobin 10.8 g/dL (12.0-16.0); Immature Granulocytes # (auto) 0.02 K/uL (0.00-0.02); Immature Granulocytes % (auto) 0.2 %; Lymphocytes # (auto) 0.64 K/uL (1.2-3.4); Lymphocytes % (auto) 6.9 %; Mean Corpuscular Hemoglobin 28.7 pg (25-34); Mean Corpuscular Hgb Conc 32.5 g/dL (32-36); Mean Corpuscular Volume 88.3 fL (80-100); Mean Platelet Volume 11.4 fL (7.4-10.4); Monocytes # (auto) 0.62 K/uL (0.11-0.59); Monocytes % (auto) 6.7 %; Neutrophils # (auto) 7.96 K/uL (1.4-6.5); Neutrophils % (auto) 86.1 %; Platelet Count 109 K/uL (130-400); RDW Standard Deviation 51.2 fL (36.4-46.3); Red Blood Count 3.76 M/uL (4.2-5.4); White Blood Count 9.25 K/uL (4.8-10.8)
[2021-08-01] MEDS: DOXYCYCLINE HYCLATE 100 MG in DEXTROSE 5% 100 ML IV SCH ×2 (07:12→20:58)
[2021-08-01 07:21] LABS: BUN Creatinine Ratio 48.9 (10-20); Calcium 8.3 mg/dl (8.5-10.1); Creatinine Clr Calc Pharmacy 34.2 ml/min; Est GFR (African American) 64.1 ml/min; Est GFR (Non-African American) 55.3 ml/min; Magnesium 1.9 mg/dl (1.7-2.4); Phosphorus 2.6 mg/dl (2.5-4.9); Potassium 3.5 mmol/L (3.5-5.1)
--- NOTE | 2021-08-01 09:14 | Orthopedic Consultation ---
Date of Consultation August 01, 2021 Assessment & Plan (1) Osteoarthritis of right shoulder: She has obvious very severe osteoarthritis of her right shoulder. It is unclear whether this is primary or posttraumatic. The patient is completely nonverbal, and I am therefore unable to assess how much this hurts her. She certainly is not a standard surgical candidate, so we will not have any type of discussion about a shoulder replacement surgery. No subluxation or dislocation of the shoulder is noted on CT scan. No acute orthopedic intervention required. Orthopedics will sign off. Please call with questions. She does not require any orthopedic follow-up. History of Present Illness Reason for Consultation: Right shoulder subluxation on X-ray Attending Physician: Amado Guido MD History of Present Illness Ms. Hylton is an 86-year old female who was apparently found alone and very poor living conditions in her house during a welfare check. History is entirely obtained from the medical record, as the patient is completely nonverbal for me. By chart review, she apparently was answering no to some questions in the ER, but nursing reports that she has been completely nonverbal for 2 shifts for her. It appears that questionable right shoulder subluxation was noted on x-rays. It is unclear whether she actually complained of any pain; I do not see this documented, and she does not endorse any pain for me during exam, although again she is completely nonverbal. No obtainable history of any trauma to that right shoulder. Allergies Allergy/AdvReac Type Severity Reaction Status Date / Time No Known Allergies Allergy Verified 07/30/21 17:54 Home Medications Medication Instructions Recorded Confirmed Type Unobtainable 07/30/21 07/30/21 History Patient History Medical History (Updated 08/01/21 @ 09:19 by Frankie Flowers M.D.) GERD (gastroesophageal reflux disease) HLD (hyperlipidemia) HTN (hypertension) Surgical History (Updated 07/30/21 @ 19:51 by Zaida Murillo PA-C) No history of previous surgery Family History (Updated 07/30/21 @ 19:52 by Zaida Murillo PA-C) Sister Breast cancer Mother Heart disease Father Heart disease Social History (Updated 07/30/21 @ 19:52 by Zaida Murillo PA-C) Smoking Status: Unknown if ever smoked 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 No verbal response to any questions. 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 No obvious gross deformity of the shoulder. No obvious pain response to palpation of the shoulder. I am unable to assess motor or sensory function, or active range of motion. Results & Data ([facility] [place]) Vital Signs (Past 12 Hours) Vital Signs Temp Pulse Pulse Resp BP Pulse Ox 08/01/21 07:38 90 08/01/21 07:21 36.6 C 87 14 107/82 96 08/01/21 03:42 36.4 C L 87 16 133/63 95 08/01/21 00:00 74 07/31/21 22:34 36.6 C 74 18 135/55 L 96 Diagnostic Findings X-rays and CT scan of the right shoulder were reviewed. They show severe arthritis of the glenohumeral joint. This may be posttraumatic related to a fracture, but there is so much deformity and erosion of the humeral head and glenoid it is difficult to say for certain. No subluxation or dislocation of the glenohumeral joint.
[2021-08-01] MEDS: D5W AND 1/2NSS 1,000 ML IV SCH ×2 (09:15→21:07)
[2021-08-01] MEDS: CLOTRIMAZOLE 1% CR 15 GM TUBE EXT SCH ×2 (09:16→21:08)
[2021-08-01] MEDS: HEPARIN SOD 5,000 UNIT/0.5 ML VIAL SQ SCH ×2 (09:17→21:08)
[2021-08-01] MEDS: FAMOTIDINE 20 MG in SYRINGE 3 ML IV SCH (09:17)
--- NOTE | 2021-08-01 10:44 | Hospitalist Progress Note ---
Date of Service August 01, 2021 Assessment & Plan (1) Cellulitis of lower leg: (2) Positive blood culture: (3) Hypothermia: (4) Bradycardia: (5) AMS (altered mental status): (6) Leg swelling: (7) HTN (hypertension): (8) HLD (hyperlipidemia): (9) GERD (gastroesophageal reflux disease): Plan: 86 year old female presented to ED via EMS for leg wounds and hypothermia. Area agency on aging found the patient in house disheveled, covered in feces and called EMS. She is being treated for following conditions. 1. RLE cellulitis- bilateral venous stasis changes, US LE negative for DVT. RLE with foul smelling discharge and cellulitis. Wound clx growing Morganella morganii. On zosyn pending final clx results. Wound care consulted. 2. Positive blood culture for CONS- Blood clx from 07/30 showing CONS in 1 out of 2 cultures, likely contamination. Repeat blood culture pending. 3. Hypothermia with bradycardia- resolved. likely from above. Echo with EF >70%, grade 1 diastolic dysfunction, no significant valvular lesion 4. AMS- likely from above, unknown baseline. CT head with no acute changes. Lyme negative. TSH normal. Lactate and procal negative. Mental status improved. Currently n.p.o. pending BROOM MAKER evaluation. Start on IVF given low urine output and n.p.o. status. 5. HTN- on low dose lisinopril as OP. resume when indicated 6. HLD- ?on statin as OP 7. GERD- ?on PPI as OP. Continue pepcid 8. Right shoulder subluxation/dislocation- seen in Xray. unable to determine chronicity. Seen by orthopedics- no acute intervention indicated, signed off DVT prophyalxis: sc heparin Disposition: Not medically stable. On iv antibiotics for cellulitis pending culture results, WOCN evaluation pending Contact: Unable to reach family over the phone [phone] (ariel delgado, sister) Admission and Anticipated Discharge Date Admission Date: July 30, 2021 Subjective Patient is more awake and alert today. Answers simple questions although speech is difficult to understand. Follows simple commands. Denies any pain. No fever, chills, shortness of breath, nausea or vomiting Physical Exam Physical Exam: General: Chronically ill appearing elderly female, Awake, alert, not in acute distress HEENT: PERRL, anicteric, dry mucous membranes Chest: Clear breath sounds bilaterally, no wheezes or crackles CVS: Regular rate and rhythm, normal heart sounds, no murmur Abdomen: Soft, non tender, not distended, normal bowel sounds Neuro: Awake, alert, oriented to self, follows simple commands, answers simple questions but speech is difficult to understand Extremities: bilateral venous stasis changes R>L. RLE cellulitis with foul smelling discharge, erythema and tenderness Results & Data Results & Data ([facility]) Vital Signs (Past 12 Hours) Vital Signs Temp Pulse Pulse Resp BP Pulse Ox 08/01/21 07:38 90 08/01/21 07:21 36.6 C 87 14 107/82 96 08/01/21 03:42 36.4 C L 87 16 133/63 95 08/01/21 00:00 74 Laboratory Results Short CBC 08/01/21 Range/Units 06:03 WBC 9.25 (4.8-10.8) K/uL Hgb 10.8 L D (12.0-16.0) g/dL Hct 33.2 L (37-47) % Plt Count 109 L (130-400) K/uL BMP 08/01/21 06:03 Sodium 145 Potassium 3.5 Chloride 116 H Carbon Dioxide 22 BUN 46 H Creatinine 0.94 D Glucose 79 Calcium 8.3 L D Medications Administered Current Inpatient Medications Acetaminophen (Acetaminophen 325 Mg Tab) 650 mg PO Q4H PRN PRN Reason: Pain or Fever Stop: 08/30/21 07:21 Clotrimazole (Clotrimazole 1% Cr 15 Gm Tube) 1 appln EXT BID [facility] Stop: 08/30/21 07:59 Last Admin: 08/01/21 09:16 Dose: 1 appln Documented by: Heparin Sodium (Porcine) (Heparin Sod 5,000 Unit/0.5 Ml Vial) 5,000 units SQ Q12 [facility] Stop: 08/30/21 07:59 Last Admin: 08/01/21 09:17 Dose: 5,000 units Documented by: Doxycycline Hyclate 100 mg/ (Dextrose) 110 mls @ 50 mls/hr IV Q12H [facility] Stop: 08/07/21 07:59 Last Infusion: 08/01/21 09:24 Dose: Infused Documented by: Piperacillin Sod/Tazobactam (Sod 3.375 gm/ Dextrose) 115 mls @ 28.75 mls/hr IV Q8H [facility]; Protocol Stop: 08/07/21 09:59 Last Admin: 08/01/21 09:18 Dose: 28.8 mls/hr Documented by: Famotidine 20 mg/ Syringe 5 mls @ 2.5 mls/min IV DAILY [facility] Stop: 08/31/21 08:59 Last Admin: 08/01/21 09:17 Dose: 2.5 mls/min Documented by: Dextrose/Sodium Chloride (D5w And 1/2nss) 1,000 mls @ 80 mls/hr IV .[id number] [facility] Stop: 09/01/21 07:44 Last Admin: 08/01/21 09:15 Dose: 80 mls/hr Documented by: Miscellaneous Information (Piperacill/Tazobac Consult Active) 1 ea N/A UD PRN PRN Reason: Consult Stop: 08/29/21 17:24 (1) Hypothermia Encounter type: initial encounter Qualified Code(s): T68.XXXA - Hypothermia, initial encounter
[2021-08-02 00:35] LABS: Magnesium 1.8 mg/dl (1.7-2.4); Phosphorus 2.1 mg/dl (2.5-4.9); Potassium 3.4 mmol/L (3.5-5.1)
[2021-08-02 00:40] LABS: Troponin I 0.06 ng/ml (0-0.04)
[2021-08-02] MEDS ORDERED: POTASSIUM PHOS 3 MMOL/1 ML INFUSION IV STA (00:51)
[2021-08-02] MEDS: PIPERACILLIN/TAZOBACTAM 3.375 GM in DEXTROSE 5% 100 ML IV SCH ×3 (01:27→18:33)
[2021-08-02] MEDS ORDERED: POTASSIUM PHOSPHATE 21 MMOL in SODIUM CHLORIDE 0.9% 500 ML IV ONE (01:30)
[2021-08-02 06:43] LABS: Anion Gap 8 (3-11); BUN Creatinine Ratio 38.8 (10-20); Blood Urea Nitrogen 33 mg/dl (6-23); Calcium 7.8 mg/dl (8.5-10.1); Carbon Dioxide 20 mmol/L (21-32); Chloride 115 mmol/L (98-107); Est GFR (African American) 72.4 ml/min; Est GFR (Non-African American) 62.5 ml/min; Glucose 119 mg/dl (70-99(Fasting)); Sodium 143 mmol/L (136-145); Troponin I 0.05 ng/ml (0-0.04)
[2021-08-02 06:52] LABS: Hematocrit (blood only) 34.1 % (37-47); Hemoglobin 11.1 g/dL (12.0-16.0); Mean Corpuscular Hemoglobin 28.8 pg (25-34); Mean Corpuscular Hgb Conc 32.6 g/dL (32-36); Mean Corpuscular Volume 88.3 fL (80-100); Nucleated RBC # (auto) 0.15 K/uL (0-0); Nucleated RBC % (auto) 2.6 %; Platelet Count 73 K/uL (130-400); RDW Coefficient of Variation 16.3 % (11.5-14.5); RDW Standard Deviation 51.8 fL (36.4-46.3); Red Blood Count 3.86 M/uL (4.2-5.4); White Blood Count 5.93 K/uL (4.8-10.8)
[2021-08-02 06:53] LABS: Basophils # (auto) 0.01 K/uL (0-0.2); Basophils % (auto) 0.2 %; Eosinophils # (auto) 0.04 K/uL (0-0.5); Eosinophils % (auto) 0.7 %; Immature Granulocytes # (auto) 0.05 K/uL (0.00-0.02); Immature Granulocytes % (auto) 0.8 %; Lymphocytes # (auto) 0.57 K/uL (1.2-3.4); Lymphocytes % (auto) 9.6 %; Monocytes # (auto) 0.45 K/uL (0.11-0.59); Monocytes % (auto) 7.6 %; Neutrophils # (auto) 4.81 K/uL (1.4-6.5); Neutrophils % (auto) 81.1 %; Platelet Estimate Decreased (Normal)
[2021-08-02] MEDS: DOXYCYCLINE HYCLATE 100 MG in DEXTROSE 5% 100 ML IV SCH (09:04)
[2021-08-02] MEDS: CLOTRIMAZOLE 1% CR 15 GM TUBE EXT SCH ×2 (09:04→20:51)
[2021-08-02] MEDS: FAMOTIDINE 20 MG in SYRINGE 3 ML IV SCH (09:05)
[2021-08-02] MEDS: D5W AND 1/2NSS 1,000 ML IV SCH ×2 (09:33→20:53)
[2021-08-02] MEDS: HEPARIN SOD 5,000 UNIT/0.5 ML VIAL SQ SCH ×2 (09:43→20:51)
--- NOTE | 2021-08-02 10:54 | Hospitalist Progress Note ---
Date of Service August 02, 2021 Assessment & Plan (1) Cellulitis of lower leg: (2) Positive blood culture: (3) Hypothermia: (4) Bradycardia: (5) AMS (altered mental status): (6) Leg swelling: (7) HTN (hypertension): (8) HLD (hyperlipidemia): (9) GERD (gastroesophageal reflux disease): Plan: 86 year old female presented to ED via EMS for leg wounds and hypothermia. Area agency on aging found the patient in house disheveled, covered in feces and called EMS. She is being treated for following conditions. 1. RLE cellulitis- bilateral venous stasis with chronic skin changes and foul smelling, US LE negative for DVT. Wound clx growing Morganella morganii and proteus both sensitive to zosyn. Clx reviewed. Continue for now. Can change to po bactrim or vantin at discharge, once able to safely take po. Wound care consulted. 2. Positive blood culture which is likely contamination- Blood clx from 07/30 showing CONS in 1 out of 4 cultures. Repeat blood culture NTD. 3. Hypothermia with bradycardia- resolved. likely from above. Echo with EF >70%, grade 1 diastolic dysfunction, no significant valvular lesion 4. AMS- much better today, likely her baseline. CT head with no acute changes. Lyme negative. TSH normal. Lactate and procal negative. Mental status improved. Currently n.p.o. pending CREDIT CHECKER reevaluation. 5. HTN- on low dose lisinopril as OP. resume when indicated 6. HLD- ?on statin as OP 7. GERD- ?on PPI as OP. Continue pepcid 8. Right shoulder subluxation/dislocation- seen in Xray. unable to determine chronicity. Seen by orthopedics- no acute intervention indicated, signed off 9. Hypophosphatemia- Repleted, recheck in am 10. Sinus pause 3.8 s- Tele with intermittent non sustained bradycardia with PVCs, also with 3.8 s pause at 13:06, and another of 2.8s. Asymptomatic. Electrolytes normal. Trop trend flat. Continue telemetry monitoring. Will consult cardio. 11. Thrombocytopenia- ?from acute illness/infection. Monitor, no bleeding, if continues to drop, discontinue sc heparin and consider checking for HIT Ab DVT prophyalxis: sc heparin Disposition: Not medically stable. On iv antibiotics for cellulitis, WOCN evaluation pending. Now with sinus pause. Contact: Unable to reach family Admission and Anticipated Discharge Date Admission Date: July 30, 2021 Subjective She is more awake, alert and likely at her baseline today. Speech more clear and answering questions appropriately. Oriented x1. States her brother's name is Hector but doesn't know her contact number, states she does not have a sister. Denies any pain. Moving UE spontaneously. No fever, nausea, vomiting, shortness of breath. Physical Exam Physical Exam: General: Chronically ill appearing elderly female, not in acute distress HEENT: PERRL, anicteric, moist mucous membranes Chest: Clear breath sounds bilaterally, no wheezes or crackles CVS: Regular rate and rhythm, normal heart sounds, no murmur Abdomen: Soft, non tender, not distended, normal bowel sounds Neuro: Awake, alert, orientedx1, likely at her baseline now, speech more clear, answering simple questions appropriately, moving upper extremity spontaneously. Extremities: bilateral venous stasis with chronic skin changes R>L. RLE cellulitis with foul smell, erythema and tenderness Results & Data Results & Data ([facility]) Vital Signs (Past 12 Hours) Vital Signs Temp Pulse Pulse Resp BP Pulse Ox 08/02/21 07:00 36.4 C L 66 15 112/55 L 94 08/02/21 03:01 57 L 08/02/21 02:09 36.6 C 75 16 130/69 96 08/01/21 23:09 36.5 C 60 16 108/81 96 Laboratory Results Short CBC 08/02/21 Range/Units 05:45 WBC 5.93 (4.8-10.8) K/uL Hgb 11.1 L (12.0-16.0) g/dL Hct 34.1 L (37-47) % Plt Count 73 L (130-400) K/uL BMP 08/01/21 08/02/21 08/02/21 23:59 05:45 06:57 Sodium 143 Potassium 3.4 L TNP 4.3 D Chloride 115 H Carbon Dioxide 20 L BUN 33 H Creatinine 0.85 Glucose 119 H Calcium 7.8 L Cardiac Enzymes 08/01/21 08/02/21 Range/Units 23:59 05:45 Troponin I 0.06 H* 0.05 H* (0-0.04) ng/ml Medications Administered Current Inpatient Medications Acetaminophen (Acetaminophen 325 Mg Tab) 650 mg PO Q4H PRN PRN Reason: Pain or Fever Stop: 08/30/21 07:21 Clotrimazole (Clotrimazole 1% Cr 15 Gm Tube) [address] [facility] Stop: 08/30/21 07:59 Last Admin: 08/02/21 09:04 Dose: 1 appln Documented by: Heparin Sodium (Porcine) (Heparin Sod 5,000 Unit/0.5 Ml Vial) 5,[address] [facility] Stop: 08/30/21 07:59 Last Admin: 08/02/21 09:43 Dose: 5,000 units Documented by: Doxycycline Hyclate 100 mg/ (Dextrose) 110 mls @ 50 mls/hr IV Q12H [facility] Stop: 08/07/21 07:59 Last Admin: 08/02/21 09:04 Dose: 50 mls/hr Documented by: Piperacillin Sod/Tazobactam (Sod 3.375 gm/ Dextrose) 115 mls @ 28.75 mls/hr IV Q8H [facility]; Protocol Stop: 08/07/21 09:59 Last Admin: 08/02/21 09:06 Dose: 28.8 mls/hr Documented by: Famotidine 20 mg/ Syringe 5 mls @ 2.5 mls/min IV DAILY [facility] Stop: 08/31/21 08:59 Last Admin: 08/02/21 09:05 Dose: 2.5 mls/min Documented by: Dextrose/Sodium Chloride (D5w And 1/2nss) 1,000 mls @ 80 mls/hr IV .[id number] [facility] Stop: 09/01/21 07:44 Last Admin: 08/02/21 09:33 Dose: 80 mls/hr Documented by: Miscellaneous Information (Piperacill/Tazobac Consult Active) 1 ea N/A UD PRN PRN Reason: Consult Stop: 08/29/21 17:24 (1) Hypothermia Encounter type: initial encounter Qualified Code(s): T68.XXXA - Hypothermia, initial encounter
--- NOTE | 2021-08-02 16:24 | Cardiology Consultation ---
Date of Consultation August 02, 2021 Assessment & Plan (1) Positive blood culture: (2) Cellulitis of lower leg: (3) AMS (altered mental status): (4) HLD (hyperlipidemia): (5) HTN (hypertension): (6) Bradycardia: (7) GERD (gastroesophageal reflux disease): (8) Frequent PVCs: Patient with cellulitis and sepsis now with frequent PVCs and sinus pauses up to 3.7 seconds Believe this is likely the first signs of sick sinus syndrome. Unfortunately, given her ongoing infection and unclear mental status baseline permanent pacemaker is not indicated at this time. We will continue to follow closely on telemetry. Recommend atropine to the bedside and external pacer pads to be placed No AV ania blocking agents currently and obviously none should be started. History of Present Illness Reason for Consultation: Frequent PVC's and pause Requesting Physician: Amado JOAQUIN Attending Physician: Amado Guido MD History of Present Illness It was my pleasure to see Ms. Hylton in cardiac consultation today August 02, 2021. Patient currently confused and not responding to questions appropriately. History obtained through review of medical records and discussion with nursing. Patient admitted on 07/30/2021 after office of aging did a home visit and found her to be hypothermic and poor living conditions. Upon admission she was found to have cellulitis and sepsis. She was admitted to telemetry. She has been in sinus rhythm with sinus bradycardia and now new episodes of sinus pauses on monitor today as well. No symptoms reported to nursing. Allergies Allergy/AdvReac Type Severity Reaction Status Date / Time No Known Allergies Allergy Verified 07/30/21 17:54 Home Medications Medication Instructions Recorded Confirmed Type Unobtainable 07/30/21 07/30/21 History Patient History Medical History GERD (gastroesophageal reflux disease) HLD (hyperlipidemia) HTN (hypertension) Surgical History No history of previous surgery Family History Sister Breast cancer Mother Heart disease Father Heart disease Social History Smoking Status: Unknown if ever smoked Preferred Language: Somali Communication Ability: Impaired Mule Operator Required: No marital status: Single Current Living Situation: Family Feels Safe at Home: No Assistive Devices: Denture - Lower and Glasses Review of Systems Review of Systems: Unobtainable due to cognitive status Results & Data ([facility]) Vital Signs (Past 12 Hours) Vital Signs Temp Pulse Pulse Resp BP Pulse Ox 08/02/21 16:16 51 L 08/02/21 15:46 36.4 C L 52 L 16 89/41 L 95 08/02/21 11:31 36.3 C L 63 15 138/60 95 08/02/21 07:00 36.4 C L 66 15 112/55 L 94
--- NOTE | 2021-08-02 22:29 | Electrocardiogram Report ---
Test Reason : Blood Pressure : / mmHG Vent. Rate : 061 BPM Atrial Rate : 061 BPM P-R Int : 182 ms QRS Dur : 096 ms QT Int : 372 ms P-R-T Axes : 056 012 -68 degrees QTc Int : 374 ms Sinus rhythm with occasional Premature ventricular complexes Low voltage QRS T wave abnormality, consider inferior ischemia T wave abnormality, consider anterior ischemia Abnormal ECG When compared with ECG of 31-JUL-2021 08:06, Premature ventricular complexes are now Present Nonspecific T wave abnormality has replaced inverted T waves in Lateral leads QT has shortened Confirmed by Agustin Smart ([id number]) on 08/02/2021 10:29:23 PM Referred By: REFERRED SELF Confirmed By:Agustin Smart
--- NOTE | 2021-08-02 23:20 | Electrocardiogram Report ---
Test Reason : Blood Pressure : / mmHG Vent. Rate : 053 BPM Atrial Rate : 053 BPM P-R Int : 192 ms QRS Dur : 106 ms QT Int : 432 ms P-R-T Axes : 054 005 -49 degrees QTc Int : 405 ms Sinus bradycardia with occasional Premature ventricular complexes Abnormal ECG When compared with ECG of 01-AUG-2021 23:49, Nonspecific T wave abnormality, improved in Lateral leads Confirmed by Agustin Smart ([id number]) on 08/02/2021 11:20:40 PM Referred By: REFERRED SELF Confirmed By:Agustin Smart
[2021-08-03] MEDS: PIPERACILLIN/TAZOBACTAM 3.375 GM in DEXTROSE 5% 100 ML IV SCH ×2 (01:54→09:53)
[2021-08-03 06:06] LABS: Hematocrit (blood only) 32.5 % (37-47); Hemoglobin 10.5 g/dL (12.0-16.0); Mean Corpuscular Hemoglobin 28.2 pg (25-34); Mean Corpuscular Hgb Conc 32.3 g/dL (32-36); Mean Corpuscular Volume 87.4 fL (80-100); Nucleated RBC # (auto) 0.03 K/uL (0-0); Nucleated RBC % (auto) 0.8 %; RDW Coefficient of Variation 15.9 % (11.5-14.5); RDW Standard Deviation 50.7 fL (36.4-46.3); Red Blood Count 3.72 M/uL (4.2-5.4); White Blood Count 4.28 K/uL (4.8-10.8)
[2021-08-03 06:21] LABS: BUN Creatinine Ratio 35.4 (10-20); Calcium 8.6 mg/dl (8.5-10.1); Creatinine Clr Calc Pharmacy 52.4 ml/min; Est GFR (African American) 93.8 ml/min; Potassium 3.1 mmol/L (3.5-5.1)
[2021-08-03 06:24] LABS: Mean Platelet Volume 11.2 fL (7.4-10.4); Platelet Count 87 K/uL (130-400)
[2021-08-03 06:28] LABS: Basophils # (auto) 0.01 K/uL (0-0.2); Basophils % (auto) 0.2 %; Eosinophils # (auto) 0.12 K/uL (0-0.5); Eosinophils % (auto) 2.8 %; Immature Granulocytes # (auto) 0.01 K/uL (0.00-0.02); Immature Granulocytes % (auto) 0.2 %; Lymphocytes # (auto) 0.67 K/uL (1.2-3.4); Lymphocytes % (auto) 15.7 %; Monocytes # (auto) 0.32 K/uL (0.11-0.59); Monocytes % (auto) 7.5 %; Neutrophils # (auto) 3.15 K/uL (1.4-6.5); Neutrophils % (auto) 73.6 %; RBC Morphology Unremarkable
[2021-08-03] MEDS ORDERED: POTASSIUM CHLORIDE 20 MEQ/15 ML UDC PO STA (06:43)
[2021-08-03] MEDS: CLOTRIMAZOLE 1% CR 15 GM TUBE EXT SCH ×2 (07:36→22:03)
[2021-08-03] MEDS: FAMOTIDINE 20 MG in SYRINGE 3 ML IV SCH (07:36)
[2021-08-03] MEDS: POTASSIUM CHLORIDE / WTR 10 MEQ/100 ML PLCT IV SCH ×2 (07:36→08:38)
[2021-08-03] MEDS: HEPARIN SOD 5,000 UNIT/0.5 ML VIAL SQ SCH ×2 (07:37→22:03)
[2021-08-03] MEDS ORDERED: ATROPINE SULFATE 0.1 MG/ML 10ML SYR IV PRN (08:01)
[2021-08-03] MEDS: D5W AND 1/2NSS 1,000 ML IV SCH (08:04)
--- NOTE | 2021-08-03 11:48 | Cardiology Progress Note ---
Date of Service August 03, 2021 Assessment & Plan (1) Positive blood culture: (2) Cellulitis of lower leg: (3) AMS (altered mental status): (4) HLD (hyperlipidemia): (5) HTN (hypertension): (6) Bradycardia: (7) GERD (gastroesophageal reflux disease): (8) Frequent PVCs: Plan: Patient with cellulitis and sepsis now with frequent PVCs and sinus pauses up to 3.7 seconds Believe this is likely the first signs of sick sinus syndrome. Unfortunately, given her ongoing infection and unclear mental status baseline permanent pacemaker is not indicated at this time. We will continue to follow closely on telemetry. Recommend atropine to the bedside and external pacer pads to be placed No AV ania blocking agents currently and obviously none should be started. Admission and Anticipated Discharge Date Admission Date: July 30, 2021 Subjective Patient seen and examined, chart reviewed. More alert today. Denies any cardiac complaints of chest pain, shortness of breath, palpitations, lightheadedness, dizziness or syncope. Telemetry reviewed: Normal sinus rhythm/sinus bradycardia with frequent PVCs. Longest sinus pause this a.m. of less than 3 seconds Review of Systems Review of Systems: All systems reviewed & are unremarkable except as noted in HPI & below Physical Exam Physical Exam: General: Awake, alert and oriented to self No acute distress. HEENT: Normocephalic, atraumatic. Pupils equal, round and reactive to light and accommodation. Extraocular muscles are intact. Anicteric sclera. Moist mucous membranes. Neck: No JVD. No bruit. Cardiovascular: irregularly irregular, unable to appreciate murmur, rub or gallop. Pulmonary: Clear to auscultation bilaterally. No rales, rhonchi, or wheezing. Abdomen: Bowel sounds x 4, soft. No rebound, guarding or tenderness. No organomegaly. Extremities: No clubbing, cyanosis or edema. +2 pedal pulses bilaterally. Skin: Warm and dry. Results & Data ([facility]) Vital Signs (Past 12 Hours) Vital Signs Temp Pulse Pulse Resp BP Pulse Ox 08/03/21 08:07 36.8 C 53 L 21 160/78 H 95 08/03/21 03:59 52 L 08/03/21 03:52 36.7 C 52 L 18 135/63 94
--- NOTE | 2021-08-03 12:24 | Hospitalist Progress Note ---
Date of Service August 03, 2021 Assessment & Plan (1) Cellulitis of lower leg: (2) Positive blood culture: (3) Hypothermia: (4) Bradycardia: (5) AMS (altered mental status): (6) Leg swelling: (7) HTN (hypertension): (8) HLD (hyperlipidemia): (9) GERD (gastroesophageal reflux disease): Plan: 86 year old female presented to ED via EMS for leg wounds and hypothermia. Area agency on aging found the patient in house disheveled, covered in feces and called EMS. She is being treated for following conditions. 1. RLE cellulitis- bilateral venous stasis with chronic skin changes, US LE negative for DVT. Wound clx growing Morganella morganii and proteus both sens itive to zosyn. Clx reviewed. Zosyn->Ceftriaxone. Can change to po bactrim or vantin at discharge. Wound care following. She did not meet SIRS criteria on admission. 2. Positive blood culture due to contamination- Blood clx from 07/30 showing CONS in 1 out of 4 cultures. Repeat blood culture NTD. 3. Hypothermia- resolved. Echo with EF >70%, grade 1 diastolic dysfunction, no significant valvular lesion 4. AMS- likely from acute metabolic encephalopathy from above, now resolved and back to her baseline. CT head with no acute changes. Lyme negative. TSH normal. Lactate and procal negative. 5. HTN- on low dose lisinopril as OP. resume when indicated 6. HLD- ?on statin as OP 7. GERD- ?on PPI as OP. Continue pepcid 8. Right shoulder subluxation/dislocation- seen in Xray. unable to determine chronicity. Seen by orthopedics- no acute intervention indicated, signed off 9. Hypokalemia- Repleted, recheck in am 10. Sinus bradycardia with sinus pause 3.8 s- Tele reviewed. Seen by cardio- pos philip SSS, not candidate for pacemaker at this time due to infection and mental status. Atropine prn at bedside and pacer pads. not on AV ania renzo. Monitor on tele, cardio following. 11. Thrombocytopenia- improving ?from acute illness/infection. Monitor, no bleeding DVT prophyalxis: sc heparin Disposition: Not medically stable. Bradycardia with sinus pause- Cardio following. Contact: Updated brother Stepan [phone] over the phone Admission and Anticipated Discharge Date Admission Date: July 30, 2021 Subjective Same as yesterday. Mental state seems to be at her baseline. Denies any chest pain/tightness, shortness of breath, dizziness, lightheadedness. No fever or chills. Physical Exam Physical Exam: General: Chronically ill appearing elderly female, not in acute distress HEENT: PERRL, anicteric, moist mucous membranes Chest: Clear breath sounds bilaterally, no wheezes or crackles CVS: Regular rate and rhythm, normal heart sounds, no murmur Abdomen: Soft, non tender, not distended, normal bowel sounds Neuro: Awake, alert, orientedx1, likely at her baseline now, speech more clear, answering simple questions appropriately, moving upper extremity spontaneously. Extremities: bilateral venous stasis with chronic skin changes. RLE cellulitis improving, Results & Data Results & Data ([facility]) Vital Signs (Past 12 Hours) Vital Signs Temp Pulse Pulse Resp BP Pulse Ox 08/03/21 12:03 36.6 C 49 L 19 149/72 H 95 08/03/21 08:07 36.8 C 53 L 21 160/78 H 95 08/03/21 03:59 52 L 08/03/21 03:52 36.7 C 52 L 18 135/63 94 Laboratory Results Short CBC 08/03/21 Range/Units 05:26 WBC 4.28 L (4.8-10.8) K/uL Hgb 10.5 L (12.0-16.0) g/dL Hct 32.5 L (37-47) % Plt Count 87 L (130-400) K/uL BMP 08/03/21 05:26 Sodium 140 Potassium 3.1 L D Chloride 113 H Carbon Dioxide 23 BUN 23 Creatinine 0.65 Glucose 124 H Calcium 8.6 Medications Administered Current Inpatient Medications Acetaminophen (Acetaminophen 325 Mg Tab) 650 mg PO Q4H PRN PRN Reason: Pain or Fever Stop: 08/30/21 07:21 Atropine Sulfate (Atropine Sulfate 0.1 Mg/Ml 10ml Syr) 0.5 mg IV DAILY PRN PRN Reason: sustained HR <30 or symptomatic Stop: 09/02/21 08:00 Clotrimazole (Clotrimazole 1% Cr 15 Gm Tube) 1 appln EXT BID [facility] Stop: 08/30/21 07:59 Last Admin: 08/03/21 07:36 Dose: 1 appln Documented by: Heparin Sodium (Porcine) (Heparin Sod 5,000 Unit/0.5 Ml Vial) 5,000 units SQ Q12 [facility] Stop: 08/30/21 07:59 Last Admin: 08/03/21 07:37 Dose: 5,000 units Documented by: Famotidine 20 mg/ Syringe 5 mls @ 2.5 mls/min IV DAILY [facility] Stop: 08/31/21 08:59 Last Admin: 08/03/21 07:36 Dose: 2.5 mls/min Documented by: Dextrose/Sodium Chloride (D5w And 1/2nss) 1,000 mls @ 80 mls/hr IV .[id number] [facility] Stop: 09/01/21 07:44 Last Admin: 08/03/21 08:04 Dose: 80 mls/hr Documented by: Ceftriaxone Sodium 1,000 mg/ (Dextrose) 60 mls @ 120 mls/hr IV Q24H [facility] Stop: 08/07/21 23:59 (1) Hypothermia Encounter type: initial encounter Qualified Code(s): T68.XXXA - Hypothermia, initial encounter
[2021-08-03] MEDS ORDERED: SODIUM CHLORIDE 0.9% 1000ML 500 ML IV ONE (12:30)
[2021-08-03] MEDS: cefTRIAXone SODIUM 1,000 MG in DEXTROSE 5% 50 ML IV SCH (19:45)
[2021-08-04 06:32] LABS: Hematocrit (blood only) 34.5 % (37-47); Hemoglobin 11.4 g/dL (12.0-16.0); Mean Corpuscular Hemoglobin 29.1 pg (25-34); RDW Standard Deviation 51.1 fL (36.4-46.3); Red Blood Count 3.92 M/uL (4.2-5.4); White Blood Count 4.05 K/uL (4.8-10.8)
[2021-08-04 06:51] LABS: BUN Creatinine Ratio 37.3 (10-20); Calcium 8.9 mg/dl (8.5-10.1); Creatinine Clr Calc Pharmacy 66.6 ml/min; Est GFR (African American) 101.6 ml/min; Est GFR (Non-African American) 87.7 ml/min; Phosphorus 3.2 mg/dl (2.5-4.9); Potassium 3.5 mmol/L (3.5-5.1)
[2021-08-04 06:52] LABS: Mean Platelet Volume 11.5 fL (7.4-10.4); Platelet Count 90 K/uL (130-400)
[2021-08-04 07:20] LABS: Basophils # (auto) 0.01 K/uL (0-0.2); Basophils % (auto) 0.2 %; Eosinophils # (auto) 0.17 K/uL (0-0.5); Eosinophils % (auto) 4.2 %; Immature Granulocytes # (auto) 0.02 K/uL (0.00-0.02); Immature Granulocytes % (auto) 0.5 %; Lymphocytes # (auto) 0.58 K/uL (1.2-3.4); Lymphocytes % (auto) 14.3 %; Monocytes # (auto) 0.41 K/uL (0.11-0.59); Monocytes % (auto) 10.1 %; Neutrophils # (auto) 2.86 K/uL (1.4-6.5); Neutrophils % (auto) 70.7 %
[2021-08-04] MEDS ORDERED: POTASSIUM CHLORIDE CRTAB 20 MEQ TABCR PO STA (08:22)
[2021-08-04] MEDS: HEPARIN SOD 5,000 UNIT/0.5 ML VIAL SQ SCH ×2 (09:28→20:50)
[2021-08-04] MEDS: FAMOTIDINE 20 MG in SYRINGE 3 ML IV SCH (09:28)
[2021-08-04] MEDS: CLOTRIMAZOLE 1% CR 15 GM TUBE EXT SCH ×2 (11:07→20:50)
--- NOTE | 2021-08-04 11:43 | Hospitalist Progress Note ---
Date of Service August 04, 2021 Assessment & Plan (1) Cellulitis of lower leg: (2) Positive blood culture: (3) Hypothermia: (4) Bradycardia: (5) AMS (altered mental status): (6) Leg swelling: (7) HTN (hypertension): (8) HLD (hyperlipidemia): (9) GERD (gastroesophageal reflux disease): Plan: 86 year old female presented to ED via EMS for leg wounds and hypothermia. Area agency on aging found the patient in house disheveled, covered in feces and called EMS. She is being treated for following conditions. 1. RLE cellulitis- bilateral venous stasis with chronic skin changes, US LE negative for DVT. Wound culture growing Morganella morganii and proteus both sensitive to zosyn. Clx reviewed. Zosyn->Ceftriaxone. Can change to po bactrim or vantin at discharge. Wound care following. She did not meet SIRS criteria on admission. 2. Positive blood culture due to contamination- Blood clx from 07/30 showing CONS in 1 out of 4 cultures. Repeat blood culture No growth to date 3. Hypothermia- resolved. Echo with EF >70%, grade 1 diastolic dysfunction, no significant valvular lesion 4. AMS- likely from acute metabolic encephalopathy from above, now resolved and back to her baseline. CT head with no acute changes. Lyme negative. TSH normal. Lactate and procal negative. 5. HTN- on low dose lisinopril as OP. resume when indicated 6. HLD- ?on statin as OP 7. GERD- ?on PPI as OP. Continue pepcid 8. Right shoulder subluxation/dislocation- seen in Xray. unable to determine chronicity. Seen by orthopedics- no acute intervention indicated, signed off 9. Hypokalemia- Repleted, recheck in am 10. Sinus bradycardia with sinus pause 3.8 s early on admission- Evaluated by Cardiology, possibly early SSS. No plan for PPM due to active infection currently. Remains in sinus bradycardia but no pauses noted in at least 48 hours 11. Thrombocytopenia- improving ?from acute illness/infection. Monitor, no bleeding DVT prophyalxis: sc heparin Disposition: Will need SNF. CM notified Admission and Anticipated Discharge Date Admission Date: July 30, 2021 Subjective Feels well. Denies chest pain, shortness of breath, light headedness or dizziness Telemetry reviewed, no pauses noted in past 24 hours. HR in 40-50s Physical Exam Physical Exam: Appears frail, elderly debilitated Neck: severe kyphosis Respiratory: breathing comfortably on room air, no wheezing/rhonchi/rales Cardiovascular: bradycardic, no murmurs/rubs/gallops Gastrointestinal (Abdomen): soft, non tender, non distended Musculoskeletal: no edema Skin: bilateral lower extremity with very dry, excoriated skin. Right leg with superimposed erythema Results & Data Results & Data ([facility]) Vital Signs (Past 12 Hours) Vital Signs Temp Pulse Pulse Resp BP Pulse Ox 08/04/21 08:04 36.7 C 53 L 19 166/61 H 92 08/04/21 06:14 46 L 08/04/21 04:55 44 L 08/04/21 04:31 36.7 C 45 L 14 148/59 H 92 Laboratory Results Short CBC 08/04/21 Range/Units 05:51 WBC 4.05 L (4.8-10.8) K/uL Hgb 11.4 L (12.0-16.0) g/dL Hct 34.5 L (37-47) % Plt Count 90 L (130-400) K/uL BMP 08/04/21 05:51 Sodium 142 Potassium 3.5 Chloride 114 H Carbon Dioxide 22 BUN 19 Creatinine 0.51 L Glucose 63 L Calcium 8.9 Medications Administered Current Inpatient Medications Acetaminophen (Acetaminophen 325 Mg Tab) 650 mg PO Q4H PRN PRN Reason: Pain or Fever Stop: 08/30/21 07:21 Atropine Sulfate (Atropine Sulfate 0.1 Mg/Ml 10ml Syr) 0.5 mg IV DAILY PRN PRN Reason: sustained HR <30 or symptomatic Stop: 09/02/21 08:00 Clotrimazole (Clotrimazole 1% Cr 15 Gm Tube) 1 appln EXT BID [facility] Stop: 08/30/21 07:59 Last Admin: 08/04/21 11:07 Dose: 1 appln Documented by: Heparin Sodium (Porcine) (Heparin Sod 5,000 Unit/0.5 Ml Vial) 5,000 units SQ Q12 [facility] Stop: 08/30/21 07:59 Last Admin: 08/04/21 09:28 Dose: 5,000 units Documented by: Famotidine 20 mg/ Syringe 5 mls @ 2.5 mls/min IV DAILY [facility] Stop: 08/31/21 08:59 Last Admin: 08/04/21 09:28 Dose: 2.5 mls/min Documented by: Ceftriaxone Sodium 1,000 mg/ (Dextrose) 60 mls @ 120 mls/hr IV Q24H [facility] Stop: 08/07/21 23:59 Last Infusion: 08/03/21 21:09 Dose: Infused Documented by: (1) Hypothermia Encounter type: initial encounter Qualified Code(s): T68.XXXA - Hypothermia, initial encounter
--- NOTE | 2021-08-04 12:04 | Cardiology Progress Note ---
Date of Service August 04, 2021 Assessment & Plan (1) Positive blood culture: (2) Cellulitis of lower leg: (3) AMS (altered mental status): (4) HLD (hyperlipidemia): (5) HTN (hypertension): (6) Bradycardia: (7) GERD (gastroesophageal reflux disease): (8) Frequent PVCs: Plan: I would continue her current treatment. I do note that she is a little hypertensive however, in this patient I would tend to let her blood pressure run a little bit higher. Additional medications may result in further bradycardia. Admission and Anticipated Discharge Date Admission Date: July 30, 2021 Subjective Patient is eating lunch. Status unchanged Review of Systems Review of Systems: Review of Systems: See HPI for pertinent positives. All other 10 point review of systems are negative. Physical Exam Physical Exam: General: no acute distress and stated age Head: normocephalic, no masses, lesions, tenderness or abnormalities Eyes: conjunctiva are pink and non-injected, sclera clear Neck: supple, no adenopathy, no bruits, normal jugular venous pulse, no hepatojugular reflux Chest: normal shape and normal respiratory effort Lungs: clear to auscultation and percussion Cardiac Exam: - regular rate & rhythm, no murmurs gallops or rubs - normal S1, normal S2 Pulses: 2(+) throughout Abdomen: abdomen soft, non-tender, no abnormal masses and no hepatosplenomegaly Musculoskeletal: no gait disturbance, no joint inflammation, no deforming arthritis Extremities: no edema and no cyanosis Neuro: grossly normal exam Results & Data ([facility]) Vital Signs (Past 12 Hours) Vital Signs Temp Pulse Pulse Resp BP Pulse Ox 08/04/21 11:49 36.6 C 53 L 19 177/59 H 94 08/04/21 08:04 36.7 C 53 L 19 166/61 H 92 08/04/21 06:14 46 L 08/04/21 04:55 44 L 08/04/21 04:31 36.7 C 45 L 14 148/59 H 92 Laboratory Results Laboratory Results - last 24 hr 08/04/21 08/04/21 08/04/21 05:51 05:51 05:51 WBC 4.05 L RBC 3.92 L Hgb 11.4 L Hct 34.5 L MCV 88.0 MCH 29.1 MCHC 33.0 RDW Std Deviation 51.1 H RDW Coeff of Paul 16.0 H Plt Count 90 L MPV 11.5 H Immature Gran % (Auto) 0.5 Neut % (Auto) 70.7 Lymph % (Auto) 14.3 Lamb % (Auto) 10.1 Eos % (Auto) 4.2 Baso % (Auto) 0.2 Neut # (Auto) 2.86 Lymph # (Auto) 0.58 L Lamb # (Auto) 0.41 Eos # (Auto) 0.17 Baso # (Auto) 0.01 Immature Gran # (Auto) 0.02 Sodium 142 Potassium 3.5 Chloride 114 H Carbon Dioxide 22 Anion Gap 6 BUN 19 Creatinine 0.51 L Est Cr Clr Drug Dosing 66.6 Est GFR ( Amer) 101.6 Est GFR (Non-Af Amer) 87.7 BUN/Creatinine Ratio 37.3 H Glucose 63 L Calcium 8.9 Phosphorus 3.2 Magnesium 1.8 Diagnostic Findings I reviewed the patient's telemetry. She is in a sinus bradycardia with heart rates in the 50s and 60s at present and for the past 24 hours. Medications Administered Current Inpatient Medications Acetaminophen (Acetaminophen 325 Mg Tab) 650 mg PO Q4H PRN PRN Reason: Pain or Fever Stop: 08/30/21 07:21 Atropine Sulfate (Atropine Sulfate 0.1 Mg/Ml 10ml Syr) 0.5 mg IV DAILY PRN PRN Reason: sustained HR <30 or symptomatic Stop: 09/02/21 08:00 Clotrimazole (Clotrimazole 1% Cr 15 Gm Tube) 1 appln EXT BID [facility] Stop: 08/30/21 07:59 Last Admin: 08/04/21 11:07 Dose: 1 appln Documented by: Heparin Sodium (Porcine) (Heparin Sod 5,000 Unit/0.5 Ml Vial) 5,000 units SQ Q12 [facility] Stop: 08/30/21 07:59 Last Admin: 08/04/21 09:28 Dose: 5,000 units Documented by: Famotidine 20 mg/ Syringe 5 mls @ 2.5 mls/min IV DAILY [facility] Stop: 08/31/21 08:59 Last Admin: 08/04/21 09:28 Dose: 2.5 mls/min Documented by: Ceftriaxone Sodium 1,000 mg/ (Dextrose) 60 mls @ 120 mls/hr IV Q24H [facility] Stop: 08/07/21 23:59 Last Infusion: 08/03/21 21:09 Dose: Infused Documented by:
[2021-08-04] MEDS: cefTRIAXone SODIUM 1,000 MG in DEXTROSE 5% 50 ML IV SCH (17:40)
[2021-08-05 06:29] LABS: BUN Creatinine Ratio 28.8 (10-20); Creatinine Clr Calc Pharmacy 57.5 ml/min; Est GFR (African American) 96.9 ml/min; Est GFR (Non-African American) 83.6 ml/min; Magnesium 1.8 mg/dl (1.7-2.4); Potassium 3.7 mmol/L (3.5-5.1)
[2021-08-05 06:42] LABS: Hematocrit (blood only) 37.1 % (37-47); Hemoglobin 12.1 g/dL (12.0-16.0); Mean Corpuscular Hemoglobin 28.6 pg (25-34); Mean Corpuscular Hgb Conc 32.6 g/dL (32-36); Mean Corpuscular Volume 87.7 fL (80-100); Platelet Count 99 K/uL (130-400); RDW Standard Deviation 50.8 fL (36.4-46.3); Red Blood Count 4.23 M/uL (4.2-5.4); White Blood Count 4.19 K/uL (4.8-10.8)
[2021-08-05 06:44] LABS: Platelet Estimate Decreased (Normal)
[2021-08-05] MEDS ORDERED: GLUCOSE 10 TABS/TUBE PO PRN (06:44)
[2021-08-05] MEDS ORDERED: CARBOHYDRATES FOR HYPOGLYCEMIA PO PRN (06:44)
[2021-08-05] MEDS ORDERED: DEXTROSE 50% 50 ML SYRINGE IV PRN (06:44)
[2021-08-05] MEDS ORDERED: GLUCAGON FOR INJ 1 MG VIAL SQ PRN (06:44)
[2021-08-05] MEDS ORDERED: GLUCOSE 40% GEL 15 GM TUBE PO PRN (06:44)
[2021-08-05] MEDS ORDERED: POTASSIUM CHLORIDE CRTAB 20 MEQ TABCR PO STA (07:26)
[2021-08-05] MEDS: MAGNESIUM SULFATE / D5W 1 GM/100 ML BAG IV SCH ×2 (07:45→09:48)
[2021-08-05] MEDS: CLOTRIMAZOLE 1% CR 15 GM TUBE EXT SCH (07:45)
[2021-08-05] MEDS: HEPARIN SOD 5,000 UNIT/0.5 ML VIAL SQ SCH (07:45)
[2021-08-05] MEDS: FAMOTIDINE 20 MG in SYRINGE 3 ML IV SCH (07:48)
--- NOTE | 2021-08-05 10:20 | Discharge Summary ---
Date of Service August 05, 2021 Admission HPI Per Admitting Provider Patient is 86-year-old female with PMH HTN, HLD, GERD presented to ER by EMS for leg wounds and hypothermia. History obtained from outpatient records, ER staff, limited history obtained from patient secondary to current mental status. It is reported area agency on aging went to patient's house today and found her in poor living conditions and found patient's condition to be poor and EMS was called. It is reported EMS stated house was full of clutter with multiple things stuck to the ceiling. One EMS provider reported house temperature appeared cool. Reported patient was found sitting in chair covered in feces and urine. Legs were noted to be swollen and red with thickened skin and wounds. ER physician reports patient was answering no to some questions. Patient currently states lives in [place] and her sisters have . Reports brother named Stepan but is unable to tell me a last name, phone number or where he lives. She does not answer further questions for this provider. In ER found to be hypot hermic T: 29.6C rectally, P: 39, R: 14, BP: 142/65, 97% on RA. A freeman hugger was applied and patient given 500ml warmed NSS. Out patient chart reviewed. Promise Jamison listed as sister and emergency contact: [phone]. Multiple attempts have been made to call this number however no answer and no answering machine set up operator. Attempted patient's home phone number also and no one answered. Patient last seen by PCP in 07/2019. Patient noted not to see PCP on regular basis. Last Rx refill by PCP on 05/2020 for atorvastatin 10 mg 1 tablet daily. Last Rx refilled by PCP 07/2020 lisinopril 5 mg 1 tablet daily, pantoprazole 40 mg 1 tablet daily. It is unknown if patient has been taking any medications. Principal Diagnosis Bilateral lower extremity dermatitis Right lower extremity cellulitis Sinus bradycardia Hypothermia, resolved Acute metabolic encephalopathy, resolved Discharge Exam Appears comfortable. Finished breakfast. HR on child monitor noted to be in 70s. Breathing comfortably on room air. Bilateral legs with excoriated, dry skin. Right leg erythema much improved Discharge Data Allergies Allergy/AdvReac Type Severity Reaction Status Date / Time No Known Allergies Allergy Verified 07/30/21 17:54 Consultations 07/30/21 18:13 ED Decision to Admit Stat 07/31/21 15:53 Consult Orthopedic Surgery Routine 08/02/21 13:29 Consult Cardiology Routine Ordered Studies 07/30/21 16:07 CT head/brain wo con Stat 07/31/21 17:02 CT shoulder RT wo con Routine 07/31/21 19:38 US venous doppler LE BI Urgent Hospital Course (1) Cellulitis of lower leg: (2) Positive blood culture: (3) Hypothermia: (4) Bradycardia: (5) AMS (altered mental status): (6) Leg swelling: (7) HTN (hypertension): (8) HLD (hyperlipidemia): (9) GERD (gastroesophageal reflux disease): 86 year old female presented to ED via EMS for leg wounds and hypothermia. Area agency on aging found the patient in house disheveled, covered in feces and called EMS. She is being treated for following conditions. 1. RLE cellulitis- bilateral venous stasis with dermatitis, US LE negative for DVT. Wound culture growing Morganella morganii and proteus both sensitive to zosyn. She was on zosyn then ceftriaxone while here. At discharge, will be placed on Bactrim to finish 14 day course. She did not meet SIRS criteria on admission. 2. Positive blood culture due to contamination- Blood clx from 07/30 showing CONS in 1 out of 4 cultures. Repeat blood culture No growth to date 3. Hypothermia- resolved. Echo with EF >70%, grade 1 diastolic dysfunction, no significant valvular lesion 4. Sinus bradycardia with sinus pause 3.8 s early on admission- Pronounced bradycardia and pause likely due to hypothermia. HR improved to 60-70s after hypothermia resolved. Evaluated by Cardiology, possibly early SSS but no plan for pacemaker with her active infection currently. Recommend follow up with Cardiology after discharge 5. Acute metabolic encephalopathy in setting of infection. CT head with no acute changes. Lyme negative. TSH normal. 6. HTN- on low dose lisinopril which was held while here. Blood pressure mildly above goal. Would recommend follow up with PCP after discharge 7. Right shoulder subluxation/dislocation- seen in Xray. unable to determine chronicity. Seen by orthopedics- no acute intervention indicated, signed off 8. Hypokalemia, Hypomagnesemia- Repleted while here 9. Thrombocytopenia- Possibly from acute infection. Recommend repeat CBC in 4 weeks with PCP Patient discharged to [facility]. Total Time Total Time Spent Total Time Spent (In Minutes): 40 Discharge Plan Discharge Items Patient Disposition: Transfer Longterm Fac Reason For Visit: HYPOTHERMIA Discharge Diagnosis: Bilateral lower extremity skin excoriations and cellulitis Sinus Bradycardia Hypothermia, resolved Condition on Discharge: Good Activity: Resume your previous activity Non-emergency contact: Primary Care Provider and Specialist Call non-emergency contact if: you have any medication questions Follow-up/Referrals: Aleja Vines MD [Primary Care Provider] - Diet: Heart Healthy and Lactose Intolerant Diet Texture: Pureed (blended smooth) Addtl Attending Provider Instructions: Follow up with Cardiology as needed Wound care: wash both legs with mild soap and water. Then apply moisturizer To buttocks: Apply Barrier Cream with turn and as needed Keep right heel off bed surface at all times Ongoing DAIRY TECHNICIAN to advance diet texture as appropriate Pending Studies at Discharge: No Stand-Alone Forms: [facility] Totally Interactive Weather Skilled Items Patient informed of condition?: Yes DNR: No Discharge Level of Care: Skilled Communicable Disease: No Discharge Prognosis: Stable Lines: None Urinary Catheter: No Medications and DC Order Prescriptions: New acetaminophen 325 mg Tablet 650 mg PO Q4H PRN (Reason: pain) 30 Days Qty: 30 RF: 0 sulfamethoxazole-trimethoprim [Bactrim DS] 800-160 mg tablet 1 tab PO BID 5 Days Qty: 10 RF: 0 Discharge Orders: Discharge Order (Routine); Ordered 08/05/21 Ordered By: Brent Oneal Admission Data Admit Date/Time: 07/30/21 19:38 Attending Provider: Brent Oneal Admit Provider: Anders Singleton Primary Care Provider: Aleja Vines Other Providers: Anders Singleton ; Matt Hurtado ; Roland Duff ; Noman Garcia ; Jenn Perez Thomas J ; Estela Romeo ; Reuben Castaneda ; Sarkis Monge ; Krystian Pompa Andrew J. ; Sarkis Mccarthy ; Duane Bethea ; Pérez Rodrigues ; Tariq Falcon ; Estela Longo ; John Irwin ; Frankie Flowers ; Isabella Blandon ; Neftali Underwood ; Jessie Vazquez ; Segundo Mcguire. ; Maddi, ; Holden Anglin ; Rodolfo Atkins ; Kalpesh Monroe ; Dank Luis ; Duane Hare. ; Krystian Posey ; Sowmya Abel ; Shalini Hughes ; Farzaneh Harris ; Reynaldo Ingram ; Amado Guido.
== END 2021-08-05 14:30 | DRG 602 ==
LOC: ED 15:42 → 2E 19:38 → SUATTDRO 19:38 → 2E 22:06

== ENCOUNTER 2024-08-17 01:39 | Inpatient (IN) ==
[2024-08-17 02:40] LABS: Hematocrit (blood only) 45.5 % (37.0-47.0); Hemoglobin 15.8 g/dl (12.0-16.0); Mean Corpuscular Hemoglobin 31.6 pg (25.0-34.0); Mean Corpuscular Hgb Conc 34.7 g/dL (32.0-36.0); Mean Platelet Volume 10.3 fL (9.4-12.4); Platelet Count 505 K/uL (130-400); RDW Coefficient of Variation 12.9 % (11.5-14.5); RDW Standard Deviation 43.1 fL (36.4-46.3); White Blood Count 16.46 K/ul (4.8-10.8)
[2024-08-17] MEDS: PANTOprazole 80 MG in DEXTROSE 5% 100 ML IV ONE (02:56)
[2024-08-17 03:09] LABS: Alanine Aminotransferase 14 U/L (7-52); Albumin Globulin Ratio 1.5 (0.9-2); Albumin Level 5.1 gm/dl (3.4-5.0); Alkaline Phosphatase 110 U/L (34-104); Anion Gap 12 (3-11); BUN Creatinine Ratio 24.1 (10-20); Bilirubin,Total 0.5 mg/dl (0.2-1.0); Blood Urea Nitrogen 21 mg/dl (6-23); Calcium 10.4 mg/dl (8.6-10.3); Carbon Dioxide 28 mmol/L (21-32); Chloride 97 mmol/L (98-107); Globulin 3.3 gm/dl (2.5-4.0); Glucose 212 mg/dl (70-99(Fasting)); Lipase 98 U/L (11-82); Magnesium 2.2 mg/dl (1.7-2.4); Sodium 137 mmol/L (136-145); Total Protein 8.4 gm/dl (6.0-8.3); Troponin I High Sensitivity 58.5 pg/ml (0-14)
[2024-08-17 03:16] LABS: Basophils # (auto) 0.02 K/uL (0.00-0.20); Basophils % (auto) 0.1 %; Immature Granulocytes # (auto) 0.07 K/uL (0.01-0.20); Immature Granulocytes % (auto) 0.4 %; Lymphocytes # (auto) 0.53 K/uL (1.20-3.40); Lymphocytes % (auto) 3.2 %; Monocytes # (auto) 0.85 K/uL (0.11-0.59); Monocytes % (auto) 5.2 %; Neutrophils # (auto) 14.99 K/uL (1.40-6.50); Neutrophils % (auto) 91.1 %; RBC Morphology Unremarkable
[2024-08-17] MEDS: PANTOprazole 40 MG in DEXTROSE 5% MINI-B 100 ML IV SCH (03:24)
[2024-08-17] MEDS: PANTOPRAZOLE BOLUS/DRIP IV STA (03:27)
[2024-08-17] MEDS: SODIUM CHLORIDE 0.9% 1,000 ML IV SCH (03:31)
[2024-08-17 04:11] LABS: Potassium 3.6 mmol/L (3.5-5.1)
[2024-08-17] MEDS: OPTIRAY 320 100ml IV ONE (04:40)
--- NOTE | 2024-08-17 05:03 | Emergency Department Note ---
Impression & Plan Vomiting, Hematemesis, Hypertension, Elevated troponin, Dementia ED Provider Note ED Provider Note NAME: DALE KO AGE:89 SEX: Female : 1935 ARRIVES VIA: EMS INFORMANT: EMS ED PROVIDER(s): Maday Cheng DO CHIEF COMPLAINT: Hematemesis HPI: This is an 89-year-old female brought in by EMS after the facility where she resides reported patient had 2 episodes of vomiting with blood. Patient was given medication at the facility including Maalox and a Phenergan suppository. Emesis was described as coffee ground, not bright red and no clots. Patient with significant dementia and unable to provide history. Staff reported to EMS no prior similar episodes. Patient denies abdominal pain, chest pain, or difficulty breathing. No antiplatelet or anticoagulation medications noted on her med list. Patient with an episode of emesis on arrival here. This was Gastroccult positive on bedside testing by nursing staff. PAST MEDICAL HISTORY:See Below PAST SURGICAL HISTORY:See Below FAMILY HISTORY:See Below SOCIAL HISTORY:See Below HOME MEDICATIONS:See Below ALLERGIES:See Below VITALS:See Below PHYSICAL EXAMINATION: GENERAL: alert, unwell appearing, well nourished, no distress, holding a stuffed animal EYE EXAM: normal conjunctiva, PERRL and EOM's grossly intact OROPHARYNX: no exudate, no erythema, lips, buccal mucosa, and tongue normal and mucous membranes are dry NECK: supple, no nuchal rigidity, no adenopathy, non-tender LUNGS: Clear to auscultation. Normal chest wall mechanics, no w/r/r HEART: no murmurs, S1 normal and S2 normal ABDOMEN: abdomen soft, non-tender, normo-active bowel sounds, no masses, no rebound or guarding. Subcu IV catheter noted taped to the left mid abdominal wall. SKIN: no rashes, petechiae, orbruising UPPER EXTREMITIES: upper extremities are grossly normal. FROM, nml pulses b/l. LOWER EXTREMITIES: No pitting edema. FROM, nml pulses b/l. NEURO EXAM: Normal sensorium, cranial nerves II-XII grossly intact, normal speech, no facial droop,nogross weakness of arms, no gross weakness of legs. Gross sensation intact. No ataxia. Vital Signs: reviewed and remarkable Differential Diagnosis: diverticulosis, AVM, coagulopathy, colitis, inflammatory bowel disease, malignancy, Grace-Campos tear, esophagitis, peptic ulcer disease, variceal bleed, gastritis, epistaxis, fissure, hemorrhoids, as well as others were entertained. MEDICAL DECISION MAKING: This is an 89 yo female sent in from a facility due to concern for GI bleed described as coffee ground. Patient with dementia and unable to provide hx. She did have vomiting again on arrival that was gastrocult positive. VS stable. Labs drawn and sent, IV established, EKG and CXR performed and interpreted at bedside, and patient placed on telemetry. Patient started on IVF, protonix bolus/drip, and sent for CT abd/pelvis. H/H reassuring. No further episodes of hematemesis while in the ER. No melena/hematochezia. Case discussed with the hospitalist team for additional evaluation and mgmt. Consultation(s): 0745: Discussed with Robbie Calloway hospitalist team, for additional evaluation and mgmt. ER Treatment Provided: See below Diagnostics Interpreted By Me: -ECG: Normal sinus at 79 with first-degree AV block, normal axis, normal intervals, T wave inversions noted in V3 through V6; no acute changes morphology compared to EKG from 2021 although T wave inversions appear more significant -Cardiac Monitoring: An order was placed for continuous cardiac monitoring. The monitor shows a rate of 82 with normal sinus rhythm. -Laboratory studies: As stated above and show below. -Imaging studies: Triage Nursing Note Reviewed Prior/Outside Records Reviewed Critical Care: Critical care of 44 min performed to assess and manage high likelihood of life-threatening GI bleed , involving labs and imaging performed with assessment to evaluate hematemesis diagnosis with frequent reassessment. This time includes bedside time, treatment discussions with patient/family/consultants, documentation time and excludes procedure time. Past Med/Surg History Problem List Dementia (Acute) Elevated troponin (Acute) Hypertension (Acute) Hematemesis (Acute) Vomiting (Acute) Frequent PVCs Osteoarthritis of right shoulder GERD (gastroesophageal reflux disease) HLD (hyperlipidemia) HTN (hypertension) Hypothermia (Acute) Bradycardia (Acute) Acid reflux (Chronic) Medical History Positive blood culture Cellulitis of lower leg AMS (altered mental status) Pain in right shoulder Cellulitis of leg, right Leg swelling Surgical History No history of previous surgery Family History Sister Breast cancer Mother Heart disease Father Heart disease Social History Smoking Status: Never smoker Preferred Language: Afghan Communication Ability: Impaired Technical Artist Required: No Beliefs That Will Affect Care: None marital status: Single Current Living Situation: Jail Other Information That Helps Us Care for You: No Feels Safe at Home: Yes Safety Concerns: Feels Safe At This Time Assistive Devices: Denture - Upper, Denture - Lower and Glasses Allergies Allergies Allergy/AdvReac Type Severity Reaction Status Date / Time lactose Allergy Intermediate Gastrointestinal Verified 08/17/24 03:06 Upset Home Meds Home Medications Medication Instructions Recorded Confirmed acetaminophen 325 mg tablet 650 mg PO Q6H PRN FEVER >101 08/17/24 08/17/24 (Tylenol) acetaminophen 500 mg tablet 500 mg PO TID 08/17/24 08/17/24 (Tylenol Extra Strength) aluminum-mag hydroxide-simethicone 30 ml PO HS PRN GERD 08/17/24 08/17/24 200 mg-200 mg-20 mg/5 mL oral susp benzonatate 200 mg capsule 200 mg PO Q8H PRN Cough 08/17/24 08/17/24 clotrimazole-betamethasone 1 1 applic topical Q8H PRN 08/17/24 08/17/24 %-0.05 % topical cream EXCORIATION duloxetine 30 mg capsule,delayed 60 mg PO DAILY 08/17/24 08/17/24 release (Cymbalta) lorazepam 0.5 mg tablet (Ativan) 0.5 mg PO .DAILY AT 0500 08/17/24 08/17/24 mirtazapine 7.5 mg tablet 7.5 mg PO HS 08/17/24 08/17/24 omeprazole 20 mg capsule,delayed 20 mg PO DAILY 08/17/24 08/17/24 release polyvinyl alcohol 1.4 % eye drops 1 drp ophthalmic (eye) BID 08/17/24 08/17/24 (Artificial Tears (polyvinyl alcohol)) promethazine 25 mg rectal 25 mg WA ONCE 08/17/24 08/17/24 suppository quetiapine 25 mg tablet (Seroquel) 25 mg PO BID 08/17/24 08/17/24 Results & Data (ED) Vital Signs Vital Signs - 24 hr 08/17/24 01:51 08/17/24 01:59 08/17/24 04:27 Temperature 37.1 C Temperature Source Axillary Pulse Rate 98 H 100 H 91 H Pulse Rate [Apical] Pulse Rate from SpO2 Sensor 91 H Pulse Rhythm Regular Pulse Strength [Apical] Respiratory Rate 36 H 27 H Respiratory Effort / Characteristics Non-Labored Respiratory Depth Normal Respiratory Pattern Blood Pressure 177/144 H 167/144 H Blood Pressure [Right Arm] Blood Pressure Mean 155 150 Blood Pressure Mean [Right Arm] Pulse Oximetry 92 92 Oxygen Delivery Method Room Air Room Air Sepsis Recent Fever Within 48 Hours No Sepsis New/Unexplained Change in Mental Status No Sepsis Action Taken by Nursing No Action Required 08/17/24 04:49 08/17/24 05:00 08/17/24 05:12 Temperature Temperature Source Pulse Rate 87 96 H 99 H Pulse Rate [Apical] Pulse Rate from SpO2 Sensor 90 96 H Pulse Rhythm Pulse Strength [Apical] Respiratory Rate 34 H 30 H Respiratory Effort / Characteristics Respiratory Depth Respiratory Pattern Blood Pressure 139/113 H 205/114 H 177/144 H Blood Pressure [Right Arm] Blood Pressure Mean 124 137 Blood Pressure Mean [Right Arm] Pulse Oximetry 91 90 Oxygen Delivery Method Room Air Room Air Sepsis Recent Fever Within 48 Hours Sepsis New/Unexplained Change in Mental Status Sepsis Action Taken by Nursing 08/17/24 05:12 08/17/24 05:21 08/17/24 05:27 Temperature Temperature Source Pulse Rate 100 H 71 79 Pulse Rate [Apical] Pulse Rate from SpO2 Sensor 100 H 68 Pulse Rhythm Pulse Strength [Apical] Respiratory Rate 27 H 30 H Respiratory Effort / Characteristics Respiratory Depth Respiratory Pattern Blood Pressure 170/136 H 170/136 H 208/103 H Blood Pressure [Right Arm] Blood Pressure Mean 157 147 Blood Pressure Mean [Right Arm] Pulse Oximetry 93 91 Oxygen Delivery Method Nasal Cannula Room Air Sepsis Recent Fever Within 48 Hours Sepsis New/Unexplained Change in Mental Status Sepsis Action Taken by Nursing 08/17/24 05:30 08/17/24 05:54 08/17/24 06:00 Temperature Temperature Source Pulse Rate 68 77 78 Pulse Rate [Apical] Pulse Rate from SpO2 Sensor 71 78 Pulse Rhythm Pulse Strength [Apical] Respiratory Rate 26 H 29 H Respiratory Effort / Characteristics Respiratory Depth Respiratory Pattern Blood Pressure 187/112 H 206/104 H Blood Pressure [Right Arm] Blood Pressure Mean 138 163 Blood Pressure Mean [Right Arm] Pulse Oximetry 92 92 Oxygen Delivery Method Room Air Room Air Sepsis Recent Fever Within 48 Hours Sepsis New/Unexplained Change in Mental Status Sepsis Action Taken by Nursing 08/17/24 06:30 08/17/24 07:05 08/17/24 07:07 Temperature Temperature Source Pulse Rate 79 67 67 Pulse Rate [Apical] Pulse Rate from SpO2 Sensor Pulse Rhythm Pulse Strength [Apical] Respiratory Rate Respiratory Effort / Characteristics Respiratory Depth Respiratory Pattern Blood Pressure 208/103 H 218/100 H 218/100 H Blood Pressure [Right Arm] Blood Pressure Mean Blood Pressure Mean [Right Arm] Pulse Oximetry Oxygen Delivery Method Sepsis Recent Fever Within 48 Hours Sepsis New/Unexplained Change in Mental Status Sepsis Action Taken by Nursing 08/17/24 08:05 08/17/24 08:53 Temperature Temperature Source Pulse Rate 73 Pulse Rate [Apical] 71 Pulse Rate from SpO2 Sensor Pulse Rhythm Pulse Strength [Apical] Normal Respiratory Rate 19 Respiratory Effort / Characteristics Non-Labored Spontaneous Respiratory Depth Normal Respiratory Pattern Regular Blood Pressure 159/125 H Blood Pressure [Right Arm] 199/91 H Blood Pressure Mean Blood Pressure Mean [Right Arm] 127 Pulse Oximetry 92 Oxygen Delivery Method Room Air Sepsis Recent Fever Within 48 Hours Sepsis New/Unexplained Change in Mental Status Sepsis Action Taken by Nursing Laboratory Data 08/17/24 Unknown 08/17/24 Unknown Lab Results 08/17/24 08/17/24 Range/Units 03:18 06:22 Potassium 3.6 (3.5-5.1) mmol/L Lactate 1.8 (0.4-2.0) mmol/L AST 20 (13-39) U/L Administered Medications Discontinued Medications Artificial Tears (Artificial Tears) 1 drops OP BID KRISTA Stop: 09/16/24 20:59 Last Admin: 08/17/24 20:13 Dose: 1 drops Documented By: XAVIER Diphenoxylate HCl/Atropine (Diphenoxylate/Atropine 2.5/0.025mg Tab) 2 tab PO NOW ONE Stop: 08/17/24 16:10 Last Admin: 08/17/24 16:22 Dose: Not Given Documented By: REN Duloxetine HCl (Duloxetine Hcl 60 Mg Cap) 60 mg PO DAILY KRISTA Stop: 09/16/24 12:22 Last Admin: 08/17/24 14:59 Dose: Not Given Documented By: REN Pantoprazole Sodium 40 mg/ (Dextrose) 100 mls @ 20 mls/hr IV Q5H KRISTA Stop: 09/16/24 02:44 Last Admin: 08/18/24 02:04 Dose: 8 mg/hr, 20 mls/hr Documented By: Infusion: 08/18/24 01:53 Dose: Infused Documented By: Admin: 08/17/24 20:53 Dose: 8 mg/hr, 20 mls/hr Documented By: Infusion: 08/17/24 20:10 Dose: Infused Documented By: Admin: 08/17/24 15:10 Dose: 8 mg/hr, 20 mls/hr Documented By: Infusion: 08/17/24 15:10 Dose: Infused Documented By: Admin: 08/17/24 10:40 Dose: 8 mg/hr, 20 mls/hr Documented By: Infusion: 08/17/24 09:39 Dose: Infused Documented By: Admin: 08/17/24 03:24 Dose: 8 mg/hr, 20 mls/hr Documented By: MEY Pantoprazole Sodium 80 mg/ (Dextrose) 120 mls @ 480 mls/hr IV NOW ONE Stop: 08/17/24 02:39 Last Infusion: 08/17/24 03:11 Dose: Infused Documented By: Admin: 08/17/24 02:56 Dose: 480 mls/hr Documented By: MEY Sodium Chloride (Nss) 1,000 mls @ 125 mls/hr IV .Q8H KRISTA Stop: 08/18/24 02:29 Last Infusion: 08/17/24 14:01 Dose: Infused Documented By: Infusion: 08/17/24 08:35 Dose: 0 mls/hr Documented By: Infusion: 08/17/24 08:33 Dose: 125 mls/hr Documented By: Admin: 08/17/24 03:31 Dose: 125 mls/hr Documented By: MEY Lactated Ringer's (Lr) 1,000 mls @ 80 mls/hr IV .[id number] KRISTA Stop: 08/18/24 07:59 Last Admin: 08/17/24 20:57 Dose: 80 mls/hr Documented By: Infusion: 08/17/24 20:57 Dose: Infused Documented By: Admin: 08/17/24 08:32 Dose: 80 mls/hr Documented By: BASIM Ioversol (Optiray 320 100ml) 93 ml IV ONCE ONE Stop: 08/17/24 04:40 Last Admin: 08/17/24 04:40 Dose: 93 ml Documented By: CHRIS Labetalol HCl (Labetalol Hcl Iv 5 Mg/Ml 20ml) 5 mg IV NOW STA Stop: 08/17/24 05:05 Last Admin: 08/17/24 05:12 Dose: 5 mg Documented By: MEY Labetalol HCl (Labetalol Hcl Iv 5 Mg/Ml 20ml) 5 mg IV NOW STA Stop: 08/17/24 06:26 Last Admin: 08/17/24 06:30 Dose: 5 mg Documented By: HEATHER Labetalol HCl (Labetalol Hcl Iv 5 Mg/Ml 20ml) 10 mg IV NOW STA Stop: 08/17/24 06:57 Last Admin: 08/17/24 07:07 Dose: 10 mg Documented By: BASIM Lorazepam (Lorazepam 2 Mg/1 Ml Vial) 0.5 mg IV NOW ONE Stop: 08/17/24 12:24 Last Admin: 08/17/24 13:22 Dose: 0.5 mg Documented By: BASIM Losartan Potassium (Losartan Potassium 50 Mg Tab) [facility] Stop: 09/16/24 13:14 Last Admin: 08/17/24 15:00 Dose: Not Given Documented By: REN Mirtazapine (Mirtazapine Tab 15 Mg Tab) 7.5 mg PO HS [facility] Stop: 09/16/24 20:59 Last Admin: 08/17/24 21:48 Dose: Not Given Documented By: XAVIER Ondansetron HCl (Ondansetron Inj 2 Mg/Ml 2 Ml Vial) 4 mg IV Q6H PRN PRN Reason: Nausea Stop: 09/16/24 12:22 Last Admin: 08/17/24 12:55 Dose: 4 mg Documented By: BASIM Pantoprazole Sodium (Pantoprazole Bolus/Drip) 1 each IV NOW STA Stop: 08/17/24 02:26 Last Admin: 08/17/24 03:27 Dose: Not Given Documented By: DML Quetiapine Fumarate (Quetiapine Fumarate 25 Mg Tablet) 25 mg PO BID KRISTA Stop: 09/16/24 12:44 Last Admin: 08/17/24 20:09 Dose: 25 mg Documented By: Admin: 08/17/24 15:00 Dose: Not Given Documented By: ELVIAN Imaging Data Radiologist's Impression: Abdomen/Pelvis CT 08/17/24 02:25 EXAM: CT abd pelvis IV con only CLINICAL HISTORY: hematemesis TECHNIQUE: Multiple contiguous axial images were obtained from the level of diaphragm to the pubis symphysis. This study was acquired after the IV administration of iodinated contrast material, given the patients indications for the examination. If IV contrast material had not been administered, the likelihood of detecting abnormalities relevant to the patients condition would have been substantially decreased. Coronal and sagittal reformatted images were generated and reviewed to improve anatomic localization and optimize lesion detection. CT scan was performed according to ALARA (as low as reasonable achievable). COMPARISON: No FINDINGS: The visualized lung bases show bilateral mild pleuarl effusion. Eventeration of left hemidiaphragm with cranial displacement of splenic flexure of colon. 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 ABDOMEN/PELVIS: The liver is normal in size and attenuation. Few subcentimetric cysts in left lobe of liver. There is no intra or extrahepatic biliary ductal dilatation. Hepatic vasculature is patent. The gallbladder is unremarkable. The spleen, pancreas, and adrenal glands are unremarkable. Bulky medial limb of left adrenal gland. The kidneys are normal in size and attenuation. There is no hydronephrosis or perinephric fat stranding. No renal calculi or renal masses are identified. The ureters are normal in caliber and no ureteral calculi are seen. The bladder is normal in contour. No evidence of focal or diffuse bowel wall thickening or evidence of bowel obstruction is seen. The appendix is visualized in the right lower quadrant and appears within normal limits. No adenopathy or fluid collections are seen. The aorta is normal in caliber. No aggressive appearing osseous lesions are identified. IMPRESSION: 1. The visualized lung bases show bilateral mild pleuarl effusion. 2. 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 3. Eventeration of left hemidiaphragm with cranial displacement of splenic flexure of colon. ABDOMEN/PELVIS: 1. Few subcentimetric cysts in left lobe of liver. 2. Bulky medial limb of left adrenal gland, likely adrenal adenoma/ hyperplasia. Electronically signed by Flavio Lugo 08-17-2024 06:21 AM Discharge Plan Visit Data Chief Complaint: Vomiting Stated Complaint: NAUSEA/VOMITING ED Provider: Maday Cheng Discharge Problem: Vomiting, Hematemesis, Hypertension, Elevated troponin, Dementia Patient Disposition: Admitted As Inpatient Discharge Instructions Interventions: ED Discharge Assessment Last Done: 08/17/24 13:49
[2024-08-17] MEDS: LABETALOL HCL IV 5 MG/ML 20ML IV STA ×3 (05:12→07:07)
--- NOTE | 2024-08-17 06:21 | CT Scan Report ---
EXAM: CT abd pelvis IV con only CLINICAL HISTORY: hematemesis TECHNIQUE: Multiple contiguous axial images were obtained from the level of diaphragm to the pubis symphysis. This study was acquired after the IV administration of iodinated contrast material, given the patients indications for the examination. If IV contrast material had not been administered, the likelihood of detecting abnormalities relevant to the patients condition would have been substantially decreased. Coronal and sagittal reformatted images were generated and reviewed to improve anatomic localization and optimize lesion detection. CT scan was performed according to ALARA (as low as reasonable achievable). COMPARISON: No FINDINGS: The visualized lung bases show bilateral mild pleuarl effusion. Eventeration of left hemidiaphragm with cranial displacement of splenic flexure of colon. 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 ABDOMEN/PELVIS: The liver is normal in size and attenuation. Few subcentimetric cysts in left lobe of liver. There is no intra or extrahepatic biliary ductal dilatation. Hepatic vasculature is patent. The gallbladder is unremarkable. The spleen, pancreas, and adrenal glands are unremarkable. Bulky medial limb of left adrenal gland. The kidneys are normal in size and attenuation. There is no hydronephrosis or perinephric fat stranding. No renal calculi or renal masses are identified. The ureters are normal in caliber and no ureteral calculi are seen. The bladder is normal in contour. No evidence of focal or diffuse bowel wall thickening or evidence of bowel obstruction is seen. The appendix is visualized in the right lower quadrant and appears within normal limits. No adenopathy or fluid collections are seen. The aorta is normal in caliber. No aggressive appearing osseous lesions are identified. IMPRESSION: 1. The visualized lung bases show bilateral mild pleuarl effusion. 2. 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 3. Eventeration of left hemidiaphragm with cranial displacement of splenic flexure of colon. ABDOMEN/PELVIS: 1. Few subcentimetric cysts in left lobe of liver. 2. Bulky medial limb of left adrenal gland, likely adrenal adenoma/ hyperplasia. Electronically signed by Flavio Lugo 08-17-2024 06:21 AM
[2024-08-17] MEDS ORDERED: LABETALOL HCL IV 5 MG/ML 20ML IV PRN (07:49)
--- NOTE | 2024-08-17 08:05 | History & Physical Report ---
Date of Service August 17, 2024 Assessment & Plan (1) Dementia: (2) Elevated troponin: (3) Hypertension: (4) Hematemesis: (5) Vomiting: (6) HTN (hypertension): (7) HLD (hyperlipidemia): (8) GERD (gastroesophageal reflux disease): Plan GI Bleed possible GERD - Admit to PCU - Continue on protonix IV gtt and NSS IV for possible upper GI bleeding with occult positive with episode of hematemesis - Hgb/Hct trend Q6H, was 15.8 on arrival - GI consultation - Diet: NPO, ok with sips and chips, may allow clears vs full liquid later today pending response - Antiemetics prn - No pain currently, may use tylenol for such with advanced age to avoid further confusion in the setting of advanced dementia - CXR pending - Check UA and biofire due to being in facility for completeness with leukocytosis Hypertensive Urgency HTN HLD - Bp elevated at 218/100, will allow lebatolol IV prn for BP control, marginally improved after 3 doses. - Start Losartan 50 mg daily now - Does not appear that she is on home antihypertensive medications - EKG reviewed personally - ST wave inversions II, III, AVF and V4-V6, however this appears to be chronic. Troponin is 58.5 today. Trend. Repeat EKG daily and prn CP - Echo ordered - Lipids and A1C - Cardiology consulted Advanced Dementia - Reorientation frequently, room close to nurses station if possible - PT/OT - Fall precautions - Seroquel 25 mg BID , mirtazapine 7.5 mg HS, lorazepam 0.5 mg daily at 0500 (will give 1 dose of ativan IV now for prevention of withdrawal symptoms), cymbalta 60 mg daily DVT ppx: scds, no chemical anticoagulation with possible GI bleed Lines: PIV x 2 FEN/GI: N.p.o. CODE: DNR/DNI Dispo: From home, likely to remain in the hospital x 1-2 days, from [facility] I spent a total of 75 minutes with greater than 50% of that time face to face with the patient, personally reviewing all current laboratories, imaging studies, past medication reconciliation, outpatient chart review, and discussion with specialists to collaborate care for the patient excluding time spent in the performance of separately billed services or time spent by another provider/QHP. Please see attending documentation for corrections and/or additions. History of Present Illness Chief Complaint: Vomiting and coffee ground emesis Primary Care Provider: Casey Mendoza This is an 89 yo F with PMhx of HTN, HLD, GERD who presents to the hospital from [facility] with acute onset of vomiting with possible dark emesis vs coffee ground last evening, and testing positive on occult blood. Pt is unable to provide much history this morning due to advanced dementia. Pt was given a dose of Maalox and Phenergan suppository at the facility prior to arrival at the ER. She is reporting some mild abdominal discomfort in the left and right lower abdomen today. She thinks she ate a piece of chocolate last night at the facility, possibly a chocolate bar. Pt is asking for a sip of water. She does have small bout with a burp and dark watery gastric contents comes out of her mouth and she is wiping it away with a towel. She is found to have hgb of 15.8 and Hct of 45.5 and BUN 21, Cr. 0.87. Its is noted on EKG that there are ST wave inversions II, III, AVF and V4-V6, however this appears to be chronic. Troponin is 58.5 today. Here is it noted that BP has been significantly elevated and required dose of IV lebatolol. CT abd and pelvis shows a large hiatal hernia but no extravasation, or signs for colitis or other acute findings. Allergies Allergy/AdvReac Type Severity Reaction Status Date / Time lactose Allergy Intermediate Gastrointestinal Verified 08/17/24 03:06 Upset Home Medications Medication Instructions Recorded Confirmed Type acetaminophen 325 mg tablet 650 mg PO Q6H PRN FEVER >101 08/17/24 08/17/24 History (Tylenol) acetaminophen 500 mg tablet 500 mg PO TID 08/17/24 08/17/24 History (Tylenol Extra Strength) aluminum-mag hydroxide-simethicone 30 ml PO HS PRN GERD 08/17/24 08/17/24 History 200 mg-200 mg-20 mg/5 mL oral susp benzonatate 200 mg capsule 200 mg PO Q8H PRN Cough 08/17/24 08/17/24 History clotrimazole-betamethasone 1 1 applic topical Q8H PRN 08/17/24 08/17/24 History %-0.05 % topical cream EXCORIATION duloxetine 30 mg capsule,delayed 60 mg PO DAILY 08/17/24 08/17/24 History release (Cymbalta) lorazepam 0.5 mg tablet (Ativan) 0.5 mg PO .DAILY AT 0500 08/17/24 08/17/24 History mirtazapine 7.5 mg tablet 7.5 mg PO HS 08/17/24 08/17/24 History omeprazole 20 mg capsule,delayed 20 mg PO DAILY 08/17/24 08/17/24 History release polyvinyl alcohol 1.4 % eye drops 1 drp ophthalmic (eye) BID 08/17/24 08/17/24 History (Artificial Tears (polyvinyl alcohol)) promethazine 25 mg rectal 25 mg AR ONCE 08/17/24 08/17/24 History suppository quetiapine 25 mg tablet (Seroquel) 25 mg PO BID 08/17/24 08/17/24 History Past Med/Surg History Problem List Dementia (Acute) Elevated troponin (Acute) Hypertension (Acute) Hematemesis (Acute) Vomiting (Acute) Frequent PVCs Osteoarthritis of right shoulder GERD (gastroesophageal reflux disease) HLD (hyperlipidemia) HTN (hypertension) Hypothermia (Acute) Bradycardia (Acute) Acid reflux (Chronic) Medical History Positive blood culture Cellulitis of lower leg AMS (altered mental status) Pain in right shoulder Cellulitis of leg, right Leg swelling Surgical History No history of previous surgery Family History Sister Breast cancer Mother Heart disease Father Heart disease Social History Smoking Status: Never smoker Preferred Language: Portuguese Communication Ability: Impaired Life Coach Required: No Beliefs That Will Affect Care: None marital status: Single Current Living Situation: Correction Other Information That Helps Us Care for You: No Feels Safe at Home: Yes Safety Concerns: Feels Safe At This Time Assistive Devices: Denture - Upper, Denture - Lower and Glasses Review of Systems Review of Systems: Constitutional: No fever, sweats or chills Eyes: No diplopia, no worsening or blurred vision ENT: normal hearing, no trouble swallowing Respiratory: No cough, sputum, dyspnea at rest or on exertion Cardiovascular: No chest pain, tightness or palpitations Abdomen: +LLQ pain, +nausea, +vomiting, no diarrhea or constipation Musculoskeletal: No joint pain, calf pain, swelling Neurologic: No weakness, numbness/tingling,uses a walker at baseline. Psychiatric: No anxiety or depression Skin: No rash or itch Physical Exam Physical Exam: Please refer to attending addendum for the physical exam. Results & Data Results & Data Vital Signs (Past 12 Hours) Vital Signs Temp Pulse Resp BP Pulse Ox O2 Del Method 08/17/24 07:07 67 218/100 H 08/17/24 07:05 67 218/100 H 08/17/24 06:30 79 208/103 H 08/17/24 06:00 78 29 H 206/104 H 92 Room Air 08/17/24 05:54 77 08/17/24 05:30 68 26 H 187/112 H 92 Room Air 08/17/24 05:27 79 208/103 H 08/17/24 05:21 71 30 H 170/136 H 91 Room Air 08/17/24 05:12 100 H 27 H 170/136 H 93 Nasal Cannula 08/17/24 05:12 99 H 177/144 H 08/17/24 05:00 96 H 30 H 205/114 H 90 Room Air 08/17/24 04:49 87 34 H 139/113 H 91 Room Air 08/17/24 04:27 91 H 27 H 167/144 H 92 Room Air 08/17/24 01:59 37.1 C 100 H 36 H 177/144 H 92 Room Air 08/17/24 01:51 98 H Laboratory Results 08/17/24 08/17/24 08/17/24 Unknown 06:22 03:18 WBC 16.46 H RBC 5.00 Hgb 15.8 Hct 45.5 MCV 91.0 MCH 31.6 MCHC 34.7 RDW Std Deviation 43.1 RDW Coeff of Paul 12.9 Plt Count 505 H MPV 10.3 Immature Gran % (Auto) 0.4 Neut % (Auto) 91.1 Lymph % (Auto) 3.2 Traill % (Auto) 5.2 Eos % (Auto) 0.0 Baso % (Auto) 0.1 Neut # (Auto) 14.99 H Lymph # (Auto) 0.53 L Traill # (Auto) 0.85 H Eos # (Auto) 0.00 Baso # (Auto) 0.02 Immature Gran # (Auto) 0.07 RBC Morphology Unremarkable PT 11.0 INR 1.0 Sodium 137 Potassium TNP 3.6 Chloride 97 L Carbon Dioxide 28 Anion Gap 12 H BUN 21 Creatinine 0.87 Est Cr Clr Drug Dosing Not Reportable eGFR 64.04 BUN/Creatinine Ratio 24.1 H Glucose 212 H Lactate 1.8 Calcium 10.4 H Magnesium 2.2 Total Bilirubin 0.5 AST TNP 20 ALT 14 Alkaline Phosphatase 110 H Troponin I High Sens 58.5 H* Total Protein 8.4 H Albumin 5.1 H Globulin 3.3 Albumin/Globulin Ratio 1.5 Lipase 98 H Diagnostic Findings Abdomen/Pelvis CT 08/17/24 02:25 EXAM: CT abd pelvis IV con only CLINICAL HISTORY: hematemesis TECHNIQUE: Multiple contiguous axial images were obtained from the level of diaphragm to the pubis symphysis. This study was acquired after the IV administration of iodinated contrast material, given the patients indications for the examination. If IV contrast material had not been administered, the likelihood of detecting abnormalities relevant to the patients condition would have been substantially decreased. Coronal and sagittal reformatted images were generated and reviewed to improve anatomic localization and optimize lesion detection. CT scan was performed according to ALARA (as low as reasonable achievable). COMPARISON: No FINDINGS: The visualized lung bases show bilateral mild pleuarl effusion. Eventeration of left hemidiaphragm with cranial displacement of splenic flexure of colon. 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 ABDOMEN/PELVIS: The liver is normal in size and attenuation. Few subcentimetric cysts in left lobe of liver. There is no intra or extrahepatic biliary ductal dilatation. Hepatic vasculature is patent. The gallbladder is unremarkable. The spleen, pancreas, and adrenal glands are unremarkable. Bulky medial limb of left adrenal gland. The kidneys are normal in size and attenuation. There is no hydronephrosis or perinephric fat stranding. No renal calculi or renal masses are identified. The ureters are normal in caliber and no ureteral calculi are seen. The bladder is normal in contour. No evidence of focal or diffuse bowel wall thickening or evidence of bowel obstruction is seen. The appendix is visualized in the right lower quadrant and appears within normal limits. No adenopathy or fluid collections are seen. The aorta is normal in caliber. No aggressive appearing osseous lesions are identified. IMPRESSION: 1. The visualized lung bases show bilateral mild pleuarl effusion. 2. 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 3. Eventeration of left hemidiaphragm with cranial displacement of splenic flexure of colon. ABDOMEN/PELVIS: 1. Few subcentimetric cysts in left lobe of liver. 2. Bulky medial limb of left adrenal gland, likely adrenal adenoma/ hyperplasia. Electronically signed by Flavio Lugo 08-17-2024 06:21 AM Code Status & VTE Plan Code Status DNR/DNI - reviewed on polst on chart. Supervising Physician Co-Signing Physician Notes Patient is an 89-year-old female with multiple comorbidities presents with history of nausea, vomiting with coffee-ground emesis since yesterday. Patient is poor historian due to dementia. She was tested positive for fecal occult test today. She admits to have some right lower quadrant abdominal discomfort but otherwise denies any chest pain, dyspnea. Please review HPI for complete details of presentation. I personally reviewed blood work and imaging studies. Physical Exam: Vitals signs as noted above General Appearance: Frail, elderly, chronic ill-appearing, no apparent distress Head: normocephalic, Atraumatic Eyes: normal inspection, EOMI Neck: supple, Trachea midline Respiratory/Chest: Decreased breath sounds, CTA, No accessory muscle use Cardiovascular: S1, S2, No murmur Abdomen/GI:Soft, mild right lower quadrant tender, Bowel sounds present, no guarding or rigidity Extremities/Musculoskeletal:normal inspection, 1+ edema,+ kyphoscoliosis Neurologic/Psych:AAOX2, grossly no focal neurological deficits Skin: normal color, warm Upper GI bleed Presented with coffee-ground emesis H/O GERD, large hiatal hernia CT abdomen noncontributory Continue IV Protonix Monitor H&H and transfuse as needed Hemoglobin stable currently GI consulted Avoid anticoagulation Hypertensive urgency Elevated troponins likely demand ischemia Abnormal echo with wall motion abnormality ? Unclear if new Denies any chest pain Troponins trending down Added losartan, IV labetalol as needed Cardiology consulted Leukocytosis No obvious source of infection Workup so far negative for any signs of infection Monitor for now Abnormal left adrenal gland DD adrenal adenoma/hyperplasia Left liver cysts Incidental finding on CT Follow-up as outpatient I personally interviewed and examined the patient at bedside. I have reviewed the advanced practitioner's documentation on the date of service referred in note and agree with plan. Patient's care is coordinated with Patrica Hayden PA-C. Please refer to the documentation above for details of patient's presentation and for discussion of other issues. I spent a total [id number] coordinating, documenting, and providing care for this patient excluding time spent in the performance of separately billed services or time spent by another provider/QHP.
[2024-08-17] MEDS: LACTATED RINGER'S 1,000 ML IV SCH (08:32)
--- NOTE | 2024-08-17 09:38 | XRay Report ---
EXAM: XR chest 1V portable CLINICAL HISTORY: Vomiting TECHNIQUE: X-ray image of the chest obtained in AP projection. COMPARISON: Prior X-ray dated 07/30/2021 03:36:08 GROUNDS PERSON for comparison. FINDINGS: Pulmonary Parenchyma: Suspicion of large hiatus hernia. Atelectatic changes in left lower zone. Reticular shadowing in right lung and left upper zone. Bilateral CP angles obscured likely pleural effusion. Heart and Mediastinum: Heart size and shape are normal. No mediastinal widening or masses. No hilar or mediastinal lymphadenopathy. Bony Thorax: Spondylotic changes in thoracic spine. Significant degenerative changes in right shoulder joint and moderate changes in left shoulder joint. Bony thorax appears intact without fractures or deformities. Soft Tissues: Soft tissues overlying the chest wall are unremarkable. IMPRESSION: 1. Suspicion of large hiatus hernia, new finding. 2. Atelectatic changes in left lower zone, new finding. 3. Reticular shadowing in right lung and left upper zone, interval progression. 4. Bilateral CP angles obscured likely pleural effusion, a new finding. Electronically signed by Claude Garcia 08-17-2024 09:38 AM
[2024-08-17 09:53] LABS: Adenovirus PCR Not Detected (NotDetected); Bordetella parapertussis PCR Not Detected (NotDetected); Bordetella pertussis PCR Not Detected (NotDetected); Chlamydia pneumoniae PCR Not Detected (NotDetected); Coronavirus 229E PCR Not Detected (NotDetected); Coronavirus CoV-2 (COVID19)PCR Not Detected (NotDetected); Coronavirus HKU1 PCR Not Detected (NotDetected); Coronavirus NL63 PCR Not Detected (NotDetected); Coronavirus OC43PCR Not Detected (NotDetected); Human Metapneumovirus PCR Not Detected (NotDetected); Influenza A PCR Not Detected (NotDetected); Influenza B PCR Not Detected (NotDetected); Mycoplasma pneumoniae PCR Not Detected (NotDetected); Parainfluenza Virus 1 PCR Not Detected (NotDetected); Parainfluenza Virus 2 PCR Not Detected (NotDetected); Parainfluenza Virus 3 PCR Not Detected (NotDetected); Parainfluenza Virus 4 PCR Not Detected (NotDetected); Respiratory Syncytial VirusPCR Not Detected (NotDetected); Rhinovirus/Enterovirus PCR Not Detected (NotDetected)
--- NOTE | 2024-08-17 10:54 | Electrocardiogram Report ---
Test Reason : Blood Pressure : */* mmHG Vent. 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
[2024-08-17] MEDS ORDERED: SODIUM CHLORIDE 0.9% 100 ML IV PRN (12:23)
[2024-08-17] MEDS ORDERED: ACETAMINOPHEN 325 MG TAB PO PRN (12:23)
[2024-08-17] MEDS ORDERED: CLOTRIMAZOLE/BETAMETHASONE CR 15 GM TUBE EXT PRN (12:23)
[2024-08-17] MEDS ORDERED: NITROGLYCERIN SL 0.4 MG/TAB TAB SL PRN (12:23)
[2024-08-17] MEDS ORDERED: POLYETHYLENE (MIRALAX) 17 GM PACK PO PRN (12:23)
[2024-08-17 12:42] LABS: Appearance Urine Clear (Clear); Bacteria Urine Automated None Seen (None Seen); Bilirubin Urine Negative (Negative); Blood Urine Trace (Negative); Cast Urine Automated 0-2 /lpf (0-2); Color Urine Yellow; Epithelial Cell Urine Auto 0-2 /hpf (0-2); Glucose Urine UA Trace (Negative); Ketones Urine Trace (Negative); Leukocyte Esterase Urine Negative (Negative); Nitrite Urine Negative (Negative); Protein Urine 2+ (Negative); Specific Gravity Urine > 1.045 (1.000-1.030); Urobilinogen Urine Negative (Negative); pH Urine 7.5 (4.5-7.5)
[2024-08-17] MEDS: ONDANSETRON INJ 2 MG/ML 2 ML VIAL IV PRN (12:55)
[2024-08-17 12:57] LABS: Hematocrit (blood only) 45.2 % (37.0-47.0); Hemoglobin 15.5 g/dl (12.0-16.0)
[2024-08-17] MEDS: LORazepam 2 MG/1 ML VIAL IV ONE (13:22)
[2024-08-17] MEDS ORDERED: PROCHLORPERAZINE 5 MG in SYRINGE 4 ML IV PRN (14:06)
[2024-08-17] MEDS: DULoxetine HCL 60 MG CAP PO SCH (14:59)
[2024-08-17] MEDS: QUEtiapine FUMARATE 25 MG TABLET PO SCH (15:00)
[2024-08-17] MEDS: LOSARTAN POTASSIUM 50 MG TAB PO SCH (15:00)
[2024-08-17] MEDS ORDERED: DIPHENOXYLATE/ATROPINE 2.5/0.025MG TAB PO PRN (16:09)
[2024-08-17] MEDS: DIPHENOXYLATE/ATROPINE 2.5/0.025MG TAB PO ONE (16:22)
[2024-08-17 19:17] LABS: Hemoglobin 15.1 g/dl (12.0-16.0)
[2024-08-17 20:05] VITALS: RESP 18
[2024-08-17] MEDS: ARTIFICIAL TEARS OP SCH (20:13)
[2024-08-17] MEDS: MIRTAZAPINE TAB 15 MG TAB PO SCH (21:48)
[2024-08-18 04:08] VITALS: BP 139/87; TEMP 98.2; O2SAT 93
[2024-08-18] MEDS ORDERED: LORazepam 0.5 MG TAB PO SCH (05:00)
--- NOTE | 2024-08-18 05:31 | Death Pronouncement Note ---
Date of Service August 18, 2024 Pronouncement Note Admission Date August 17, 2024 Date and Time of Date of : 08/18/24 Time of : 05:24 Summary Discharge summary and certificate to be completed by Dr. Singleton. Additional Data Confirmation of : no pulse, no respirations, no heart sounds and pupils fixed and dilated Attending physician: Anders Singleton MD
--- NOTE | 2024-08-18 05:31 | Communication Note ---
Date of Service: August 18, 2024 Code purple called Patient noted to be unresponsive, pulseless, and not breathing by staff in AM. Patient with coffee-ground emesis episodes overnight. No CPR done due to DNR status. Patient pronounced at 5:24 AM. Attempted to contact patient's brother (Mr. Tao Hylton, contact #[phone]) over the phone to give update. No answer. Phone unable to receive messages. PCU staff to re-attempt contact later as per discussion with sewing supervisor.
[2024-08-18 05:41] VITALS: PULSE 0
[2024-08-18] MEDS ORDERED: PANTOprazole 40 MG TAB PO SCH (09:00)
--- NOTE | 2024-08-18 13:41 | Discharge Summary ---
Date of Service August 18, 2024 Admission HPI Per Admitting Provider This is an 89 yo F with PMhx of HTN, HLD, GERD who presents to the hospital from [facility] with acute onset of vomiting with possible dark emesis vs coffee ground last evening, and testing positive on occult blood. Pt is unable to provide much history this morning due to advanced dementia. Pt was given a dose of Maalox and Phenergan suppository at the facility prior to arrival at the ER. She is reporting some mild abdominal discomfort in the left and right lower abdomen today. She thinks she ate a piece of chocolate last night at the facility, possibly a chocolate bar. Pt is asking for a sip of water. She does have small bout with a burp and dark watery gastric contents comes out of her mouth and she is wiping it away with a towel. She is found to have hgb of 15.8 and Hct of 45.5 and BUN 21, Cr. 0.87. Its is noted on EKG that there are ST wave inversions II, III, AVF and V4-V6, however this appears to be chronic. Troponin is 58.5 today. Here is it noted that BP has been significantly elevated and required dose of IV lebatolol. CT abd and pelvis shows a large hiatal hernia but no extravasation, or signs for colitis or other acute findings. Admission Exam Per Admitting Provider Vitals signs as noted above General Appearance: Frail, elderly, chronic ill-appearing, no apparent distress Head: normocephalic, Atraumatic Eyes: normal inspection, EOMI Neck: supple, Trachea midline Respiratory/Chest: Decreased breath sounds, CTA, No accessory muscle use Cardiovascular: S1, S2, No murmur Abdomen/GI:Soft, mild right lower quadrant tender, Bowel sounds present, no guarding or rigidity Extremities/Musculoskeletal:normal inspection, 1+ edema,+ kyphoscoliosis Neurologic/Psych:AAOX2, grossly no focal neurological deficits Skin: normal color, warm Principal Diagnosis GI bleed Hypertensive Urgency Leukocytosis Discharge Exam Pt pronounced at 05:24 by retail shift manager attending. See note. Confirmation of : no pulse, no respirations, no heart sounds and pupils fixed and dilated Discharge Data Allergies Allergy/AdvReac Type Severity Reaction Status Date / Time lactose Allergy Intermediate Gastrointestinal Verified 08/17/24 03:06 Upset Consultations 08/17/24 07:56 ED Decision to Admit Stat 08/17/24 12:23 Consult Gastroenterology Routine 08/17/24 12:41 Consult Cardiology Routine Ordered Studies 08/17/24 02:25 CT abd pelvis IV con only Stat Hospital Course (1) Dementia: (2) Elevated troponin: (3) Hypertension: (4) Hematemesis: (5) Vomiting: (6) HLD (hyperlipidemia): (7) GERD (gastroesophageal reflux disease): Plan GI Bleed possible GERD - Admit to PCU - Continue on protonix IV gtt and NSS IV for possible upper GI bleeding with occult positive with episode of hematemesis - Hgb/Hct trend Q6H, was 15.8 on arrival and maintained at 15 on recheck x 2 - GI consultation was ordered however their team did not evaluate the patient. - Diet: NPO, ok with sips and chips, she was kept NPO during hospital stay. - Antiemetics prn were adminsitered- zofran and compazine IV. - Did no elicit abdominal pain with palpation and was allowed to use tylenol, opiates were avoided due to advanced age and to avoid further confusion in the setting of advanced dementia - CXR pending - UA competed and did not appear infected, urine culture was not obtained. - Respiratory biofire was negative. Hypertensive Urgency HTN HLD - Bp elevated at 218/100, will allow lebatolol IV prn for BP control, marginally improved after 3 doses. - Start Losartan 50 mg daily with first dose on 08/17 which did improve BP to 140s/90-70. - Does not appear that she is on home antihypertensive medications - Troponin trended from 58.5-->144.9 on recheck - EKG reviewed personally - ST wave inversions II, III, AVF and V4-V6, however this appears to be chronic. Troponin is 58.5 today. Trend. Repeat EKG daily and prn CP - Echo and showed EF of 60-65%, small posterior wall motion abnormalitiy with dyskinesis of segments and grade I diastolic dysfunction which was abnormal compared to previous Echo on 07/31/2021 showing no left ventricular wall motion abnormalities. Therefore cardiology was asked to weight in. Their team did not see the patient on 08/17. - Lipids and A1C were ordered but not obtained with am labs due to . Advanced Dementia - Reorientation frequently, room close to nurses station if possible - PT/OT - Fall precautions - Seroquel 25 mg BID , mirtazapine 7.5 mg HS, lorazepam 0.5 mg daily at 0500 (will give 1 dose of ativan IV now for prevention of withdrawal symptoms), cymbalta 60 mg daily Pt occurred overnight at 0524. Total Time Total Time Spent Total Time Spent (In Minutes): 35 Discharge Plan Discharge Items Patient Disposition: Discharge Diagnosis: Gi bleed Hypertensive Urgency Leukocytosis Other Date/Time: 08/18/24 05:20 Supervising Physician Co-Signing Physician Notes Patient overnight. Night hospitalist tried to reach family to update with unsuccessful as per record. Patient was noted to have no pulse or respiration or heart sounds and given patient DNI/DNR status, no resuscitation attempt was made.
--- NOTE | 2024-08-18 15:57 | Communication Note ---
Date of Service: August 18, 2024 Certificate:
== END 2024-08-18 08:34 | disposition expired | DRG 378 ==
LOC: ED 01:39 → EDINP 07:56 → 4W 13:49